=== PATIENT | female | born 1980 | race Caucasian/White ===

== ENCOUNTER 2025-03-11 11:56 | Inpatient (IN) | payer BC, SELFPAY ==
[2025-03-11] VITALS (94 sets, daily range): BP systolic 58–126; BP diastolic 38–87; PULSE 68–126; RESP 16–97; TEMP 36.6–37; O2SAT 83–100
--- NOTE | 2025-03-11 12:13 | ED_ITS ---
Documented by User: BLAIR Canseco 03/11/25 16:52 HPI - Abdominal Pain 2 General: Chief Complaint: Nausea/Vomiting/Diarrhea Stated Complaint: n/v x2 months, knots on her abd, upper abd pain Time Seen by Provider: 03/11/25 12:08 Source: patient and other (significant other) Mode of arrival: wheelchair Limitations: no limitations History of Present Illness: Patient is a 44-year-old female with no known past medical history here along with her significant other for multiple complaints. Significant other states over the past 2 months or so patient has not been doing well reporting that she essentially sleeps all day and is not eating or drinking much. Patient states she has had diffuse abdominal pain along with nausea and vomiting over the past 2 months or so. She feels like her stools are hard. She complains of foul-smelling urine. Patient states she has not been running fevers. Patient states she does not receive much medical care and thus has not been seen for her complaints prior to today. She states she does not take any prescription medications. She denies alcohol use but does admit to drug use. She states she smokes opiates and methamphetamines. Patient upon arrival appears disheveled and much older than her stated age. MD elicited complaint: abdominal pain and other (multiple complaints) Pain Consistency: constant Location: Diffuse Radiation: none Migration to: no migration Exacerbating factors: eating Relieving factors: nothing Associated Symptoms: Reports change in stool character, constipation, nausea and vomiting; Denies dysuria Related Data Home Medications ?Medication ?Instructions ?Recorded ?Confirmed No Known Home Medications 03/11/2502/26 Allergies Allergy/AdvReac Type Severity Reaction Status Date / Time ibuprofen Allergy Unknown Verified 03/11/25 12:07 naproxen Allergy Unknown Verified 03/11/25 12:07 Review of Systems 2 Const: Reports: change in appetite, fatigue, malaise and change in sleep pattern Eyes: Denies: change in vision, blurry vision, photophobia, floaters or seeing flashes Card: Denies: chest pain Resp: Denies: dyspnea GI: Reports: abdominal pain, nausea, vomiting, constipation and change in stool character : Reports: other (dark foul smelling urine); Denies: flank pain or dysuria Musc: Denies: neck pain, back pain, extremity pain, extremity swelling or joint swelling Skin/Breast: Denies: rash Neuro: Reports: dizziness; Denies: headache(s), behavioral changes or Slurred speech present Physical Exam 2 Const: COMMON NORMALS: patient oriented x3, no limitations and alert G ENERAL APPEARANCE: cooperative, disheveled and appears older than stated age ORIENTATION/CONSCIOUSNESS: Yes awake, Yes oriented to person, Yes oriented to place and Yes oriented to time HENMT: COMMON NORMALS: normocephalic and atraumatic HEAD & SCALP: normal to inspection, normocephalic and atraumatic FACE & SINUS: normal facial exam TEETH & GINGIVA: Yes caries and Yes poor dentition Neck/C-Spine: COMMON NORMALS: no lymphadenopathy Chest: COMMONS NORMALS: normal inspection of the chest and normal palpation of entire chest wall Resp: COMMON NORMALS: normal respiratory effort and clear to auscultation bilaterally AUSCULTATION: clear to auscultation bilaterally Cardio: COMMON NORMALS: regular rhythm RATE: tachycardic RHYTHM: regular rhythm GI: COMMON NORMALS: Soft to palpation and no masses INSPECTION: Yes normal to inspection AUSCULTATION: Yes normoactive bowel sounds PALPATION: Yes Soft to palpation, Yes Tenderness to palpation present (GI) (complaining of generalized abominal pain), No Guarding due to palpation present (GI) and No Rigid due to palpation RECTAL EXAM: visual inspection normal and heme positive stool : COMMON NORMALS: Yes no CVA tenderness BLADDER/KIDNEY EXAM: Yes no CVA tenderness Back/Pelvis: COMMON NORMALS: no CVA tenderness and thoracic and lumbar spine normal to inspection Extremity: GENERAL: Yes normal exam except as noted Neuro: EDISON COMA SCALE: document GCS findings Eidson coma scale eye opening: Spontaneous Edison coma scale verbal response: Orientated Edison coma scale motor response: Obey commands Hopkins coma scale total score: 15 COMMON NORMALS: patient oriented x3, moves all extremities, no focal motor deficits and no sensory deficits noted SENSORIUM/ORIENTATION: Yes alert, Yes oriented to person, Yes oriented to place and Yes oriented to time Psych: ACTIVITY/MOTOR BEHAVIOR: Yes psychomotor agitation (consistent with known amphetamine abuse) Course 2 Vital Signs: Vital signs: Vital Signs Temperature 97.8 F 03/11/25 15:02 Pulse Rate 122 H 03/11/25 16:02 Respiratory Rate 25 H 03/11/25 16:02 Blood Pressure 103/62 03/11/25 16:02 Pulse Oximetry 96 03/11/25 15:02 Oxygen Delivery Me thod Room Air 03/11/25 11:59 MDM - Abdominal Pain Medical Decision Making Patient is a 44-year-old female with no known past medical history although admittedly does not regularly seek medical attention, here with her significant other/partner for concerns that she has not been feeling good over the past 2 months or so. Her partner states she has been sleeping more during the day, has had a decreased appetite, and has complained of intermittent abdominal pains as well as nausea and vomiting. Patient arrives and appears disheveled and much older than her stated age of 44. She was found to have significant derangements on her blood work (these were repeated and verified by lab) including a hemoglobin of 2.9. Chemistry panel showing hyponatremia at 127, and anion gap of 32.5, bicarb of 14. Creatinine was normal. Elevations to her LFTs including a t. bili of 3.4 and AST/ALT at 151/48. She has a normal alk phos and normal lipase. Significant elevations to her lactate at 12.2. CT scan of her abdomen and pelvis is essentially unremarkable. She was started on an IV sepsis fluid bolus, given broad-spectrum IV antibiotics, and obtained blood cultures. 2 units of blood are ordered/running. Patient was staffed along with Dr. Nina until he left at shift change and then continued to staffed with Dr. Sotelo. Both physicians have evaluated patient and agree with care plan here in the emergency department. I did speak to Dr. Powell who is agreeable to admission. Differentials at this time are broad. She did have a positive hemoccult here- hospitalist aware and will hold off on general surgery consult at this time for EGD/colonoscopy. Differential Diagnosis Likely abdominal pain, constipation, diverticulitis and gastroenteritis Medical Records I reviewed the patient's medical records. Lab Data I reviewed the patient's lab results. 03/11/25 12:52 03/11/25 12:52 Labs/Radiology: Radiology Impressions Abdomen/Pelvis CT 03/11/25 12:24 IMPRESSION: 1. No acute abdominal or pelvic abnormalities. 2. Normal appendix. 3. Prior cholecystectomy. 4. No colitis. 5. No free fluid or adenopathy. Chest X-Ray 03/11/25 12:24 IMPRESSION: No acute findings. Laboratory Results WBC 3.75 10^3/uL (3.29-11.43) 03/11/25 12:52 Corrected WBC Cancelled 03/11/25 12:20 RBC 0.90 10^6/uL (3.85-5.65) L 03/11/25 12:52 Hgb 2.90 g/dL (11.27-16.99) L* 03/11/25 12:52 Hct 8.6 % (36-47) L* 03/11/25 12:52 MCV 95.6 fl (85-98) 03/11/25 12:52 MCH 32.2 pg (27-33) 03/11/25 12:52 MCHC 33.7 g/dL (30-55) 03/11/25 12:52 RDW 26.5 % (12.1-15.1) H 03/11/25 12:52 Plt Count 106 10^3/cmm (157-399) L 03/11/25 12:52 MPV Not Reportable 03/11/25 12:52 Gran % Cancelled 03/11/25 12:20 Neut % (Auto) 71.2 % 03/11/25 12:52 Lymph % (Auto) 24.3 % 03/11/25 12:52 Grant % (Auto) 3.7 % 03/11/25 12:52 Eos % (Auto) 0.0 % 03/11/25 12:52 Baso % (Auto) 0.0 % 03/11/25 12:52 Reticulocyte % (Auto) 3.2 % (0.5-2.0) H 03/11/25 12:52 Neut # (Auto) 2.67 10^3/uL (1.8-7.7) 03/11/25 12:52 Lymph # (Auto) 0.9 10^3/uL (0.8-4.8) 03/11/25 12:52 Grant # (Auto) 0.1 10^3/uL (0.2-0.9) L 03/11/25 12:52 Eos # (Auto) 0.0 10^3/uL (0.0-0.8) 03/11/25 12:52 Baso # (Auto) 0.0 10^3/uL (0.0-0.1) 03/11/25 12:52 Absolute Gran (auto) Cancelled 03/11/25 12:20 Nucleated RBC % (auto) 1.3 % 03/11/25 12:52 Nucleated RBCs # 0.1 /100WBC 03/11/25 12:52 Peripher Smr Path Cons Sent for review 03/11/25 12:52 ESR < 1 mm/hr (0-15) 03/11/25 12:52 Haptoglobin 10.0 mg/L (30-200) L 03/11/25 13:59 PT 55.60 SECONDS (12.1-14.9) H 03/11/25 12:52 INR 5.90 (0.8-1.2) H* 03/11/25 12:52 APTT 37.1 SECONDS (23.9-36.7) H 03/11/25 12:52 Specimen Type Arterial 03/11/25 13:45 Sample Site Radial, left 03/11/25 13:45 ABG pH 7.47 (7.35-7.45) H 03/11/25 13:45 ABG pCO2 19.5 mmHg (35-45) L* 03/11/25 13:45 ABG pO2 126.0 mmHg (80.0-100.0) H 03/11/25 13:45 ABG PO2/FiO2 Ratio 600 03/11/25 13:45 ABG HCO3 14.4 mmol/L (22-26) L 03/11/25 13:45 ABG O2 Saturation > 99.1 03/11/25 13:45 ABG Base Excess -9.2 mmol/L (-2.0-2.0) L 03/11/25 13:45 Gurpreet Test Pos 03/11/25 13:45 A-a O2 Gradient Not Reportable 03/11/25 13:45 Hematocrit 8.5 % (37-47) L 03/11/25 13:45 Hgb O2 Saturation 94.5 % (95-100) L 03/11/25 13:45 Carboxyhemoglobin 1.5 %THgb (0.4-20.1) 03/11/25 13:45 Methemoglobin 4.4 % (0.4-1.5) H 03/11/25 13:45 Total Hemoglobin < 5.0 g/dL (12-16) L 03/11/25 13:45 Sodium 124.0 mmol/L (131-143) L 03/11/25 13:45 Potassium 4.5 mmol/L (3.5-5.0) 03/11/25 13:45 Glucose 101.0 mg/dL (70-115) 03/11/25 13:45 Ionized Calcium 1.1 mmol/L (1.1-1.4) 03/11/25 13:45 O2 Delivery Device Room air 03/11/25 13:45 FiO2 21.0 % 03/11/25 13:45 Flanging Roll Operator ID [place] 03/11/25 13:45 Sodium 127 mmol/L (136-145) L 03/11/25 12:52 Potassium 4.5 mmol/L (3.5-5.1) 03/11/25 12:52 Chloride 85 mmol/L (98-107) L 03/11/25 12:52 Carbon Dioxide 14 mmol/L (22-29) L 03/11/25 12:52 Anion Gap 32.5 (5-19) H 03/11/25 12:52 BUN 24 mg/dL (6-20) H 03/11/25 12:52 Creatinine 0.7 mg/dL (0.5-0.9) 03/11/25 12:52 GFR Calculation 91.8 mL/min (90-130) 03/11/25 12:52 Glucose 102 mg/dL (65-115) 03/11/25 12:52 Calculated Osmolality 268 mOsm/kg (285-295) L 03/11/25 12:52 Lactic Acid 12.2 mmol/L (0.5-2.2) H* 03/11/25 12:52 Lactic Acid (Sepsis) Cancelled 03/11/25 12:52 Calcium 9.0 mg/dL (8.5-10.5) 03/11/25 12:52 Iron 179 ug/dL (37-145) H 03/11/25 13:59 TIBC 186.88313 mcg/dl 03/11/25 13:59 % Saturation 95.0 % (20-50) H 03/11/25 13:59 Unsat Iron Binding < 8 ug/dL (112-347) L 03/11/25 13:59 Total Bilirubin 3.4 mg/dL (0.15-1.2) H 03/11/25 12:52 Direct Bilirubin 1.01 mg/dL (0.00-0.30) H 03/11/25 13:59 GGT 8 U/L (5-36) 03/11/25 13:59 AST 151 U/L (0-32) H 03/11/25 12:52 ALT 48 U/L (0-33) H 03/11/25 12:52 Alkaline Phosphatase 63 U/L (35-105) 03/11/25 12:52 Ammonia 45 umol/L (11-51) 03/11/25 13:59 C-Reactive Protein 37.6 mg/L (0.0-4.9) H 03/11/25 13:59 Total Protein 5.9 g/dL (6.6-8.7) L 03/11/25 12:52 Albumin 3.7 g/dL (3.5-5.2) 03/11/25 12:52 Globulin 2.2 g/dL (1.3-4.6) 03/11/25 12:52 Lipase 44 U/L (13-60) 03/11/25 12:52 Vitamin B12 150 pg/mL (232-1245) L 03/11/25 13:59 Procalcitonin 0.47 ng/mL (0-0.5) 03/11/25 12:52 Procalcitonin Cancelled 03/11/25 12:52 TSH 0.01 uIU/mL (0.27-4.20) L 03/11/25 13:59 HCG, Qual Negative (Negative) 03/11/25 12:20 Urine Color Yellow (Yellow) 03/11/25 14:42 Urine Appearance Clear (CLEAR) 03/11/25 14:42 Urine pH 5.5 (5-7) 03/11/25 14:42 Ur Specific [place] 1.065 (1.005-1.030) H 03/11/25 14:42 Urine Protein Trace (Negative) A 03/11/25 14:42 Urine Glucose (UA) Negative (Normal) 03/11/25 14:42 Urine Ketones Trace (Negative) 03/11/25 14: Urine Blood 1+ (Negative) A 03/11/25 14: Urine Nitrate Negative (Negative) 03/11/25 14:42 Urine Bilirubin Negative (Negative) 03/11/25 14:42 Urine Urobilinogen 1.0 mg/dL (Negative) 03/11/25 14:42 Ur Leukocyte Esterase Negative (Negative) 03/11/25 14:42 Urine RBC 0-2 /hpf (0-2) 03/11/25 14:42 Urine WBC 0-5 /hpf (0-5) 03/11/25 14:42 Ur Squamous Epith Cells 0-5 /hpf (0-5) 03/11/25 14:42 Amorphous Sediment Not Reportable 03/11/25 14:42 Urine Bacteria None seen /hpf (NONE) 03/11/25 14:42 Hyaline Casts 7.42 /lpf 03/11/25 14:42 Salicylates 7.1 mg/dL (3-10) 03/11/25 12:52 Urine Opiates Screen Negative ng/mL (Negative) 03/11/25 14:42 Acetaminophen < 5.0 ug/mL (10-30) L 03/11/25 12:52 Ur Barbiturates Screen Negative ng/mL (Negative) 03/11/25 14:42 Ur Phencyclidine Scrn Negative ng/mL (Negative) 03/11/25 14:42 Ur Amphetamines Screen Positive ng/mL (Negative) H 03/11/25 14:42 U Benzodiazepines Scrn Negative ng/mL (Negative) 03/11/25 14:42 Urine Cocaine Screen Negative ng/mL (Negative) 03/11/25 14:42 U Marijuana (THC) Screen Negative ng/mL (Negative) 03/11/25 14:42 Ethyl Alcohol < 10 mg/dL (0-10) 03/11/25 12:52 Hepatitis A IgM Ab Non-reactive (Nonreactive) 03/11/25 13:59 Hep Bs Antigen Non-reactive (Nonreactive) 03/11/25 13:59 Hep B Core IgM Ab Non-reactive (Nonreactive) 03/11/25 13:59 Hepatitis C Antibody Non-reactive (Nonreactive) 03/11/25 13:59 HIV 1&2 Ab & HIV 1 Ag Non-reactive (Non-Reactiv) 03/11/25 12:52 HIV 1&2 Antibody Non-reactive (Non-Reactiv) 03/11/25 12:52 Blood Type O Positive 03/11/25 12:52 Rho(D) Type Rh positive 03/11/25 12:52 Antibody Screen Negative 03/11/25 12:52 Crossmatch See Detail 03/11/25 12:52 All radiology interpretation(s) finalized by discharge Discharge Plan Discharge Patient Disposition: Admitted As Inpatient Admit Provider: Pablo Palma Clinical Impression: Severe anemia, Elevated INR, Transaminitis, Hyperbilirubinemia, Elevated lactic acid level, Methamphetamine use Condition: Stable Coding Level of Care Code ED Cow Trimmer for Chg Fwd Documented by User: Charis Sotelo MD 03/11/25 15:54 HPI - Abdominal Pain 2 General: Chief Complaint: Nausea/Vomiting/Diarrhea Stated Complaint: n/v x2 months, knots on her abd, upper abd pain Time Seen by Provider: 03/11/25 12:08 Related Data Home Medications ?Medication ?Instructions ?Recorded ?Confirmed No Known Home Medications 03/11/2502/26 Allergies Allergy/AdvReac Type Severity Reaction Status Date / Time ibuprofen Allergy Unknown Verified 03/11/25 12:07 naproxen Allergy Unknown Verified 03/11/25 12:07 Course 2 Vital Signs: Vital signs: Vital Signs Temperature 97.8 F 03/11/25 15:02 Pulse Rate 122 H 03/11/25 16:02 Respiratory Rate 25 H 03/11/25 16:02 Blood Pressure 103/62 03/11/25 16:02 Pulse Oximetry 96 03/11/25 15:02 Oxygen Delivery Me thod Room Air 03/11/25 11:59 MDM - Abdominal Pain Medical Decision Making Patient is a 44-year-old female with no known past medical history although admittedly does not regularly seek medical attention, here with her significant other/partner for concerns that she has not been feeling good over the past 2 months or so. Her partner states she has been sleeping more during the day, has had a decreased appetite, and has complained of intermittent abdominal pains as well as nausea and vomiting. Patient arrives and appears disheveled and much older than her stated age of 44. She was found to have significant derangements on her blood work (these were repeated and verified by lab) including a hemoglobin of 2.9. Chemistry panel showing hyponatremia at 127, and anion gap of 32.5, bicarb of 14. Creatinine was normal. Elevations to her LFTs including a t. bili of 3.4 and AST/ALT at 151/48. She has a normal alk phos and normal lipase. Significant elevations to her lactate at 12.2. CT scan of her abdomen and pelvis is essentially unremarkable. She was started on an IV sepsis fluid bolus, given broad-spectrum IV antibiotics, and obtained blood cultures. 2 units of blood are ordered/running. Patient was staffed along with Dr. Nina until he left at shift change and then continued to staffed with Dr. Sotelo. Both physicians have evaluated patient and agree with care plan here in the emergency department. I did speak to Dr. Powell who is agreeable to admission. Differentials at this time are broad. She did have a positive hemoccult here- hospitalist aware and will hold off on general surgery consult at this time for EGD/colonoscopy. The case was discussed with: the nurse practitioner. Evaluation and management service: I agree with the evaluation and management decisions made in this patient's care. Results interpretation: I agree with the study interpretation in this patient's care, I agree with the documentation of the study interpretation. I have examined the patient personally. She appears slightly agitated but oriented. No increased work of breathing at this time although she is a little bit tachypneic from her agitation. No focal motor deficits. No oxygen requirement Lab Data 03/11/25 12:52 03/11/25 12:52 Labs/Radiology: Radiology Impressions Abdomen/Pelvis CT 03/11/25 12:24 IMPRESSION: 1. No acute abdominal or pelvic abnormalities. 2. Normal appendix. 3. Prior cholecystectomy. 4. No colitis. 5. No free fluid or adenopathy. Chest X-Ray 03/11/25 12:24 IMPRESSION: No acute findings. Laboratory Results WBC 3.75 10^3/uL (3.29-11.43) 03/11/25 12:52 Corrected WBC Cancelled 03/11/25 12:20 RBC 0.90 10^6/uL (3.85-5.65) L 03/11/25 12:52 Hgb 2.90 g/dL (11.27-16.99) L* 03/11/25 12:52 Hct 8.6 % (36-47) L* 03/11/25 12:52 MCV 95.6 fl (85-98) 03/11/25 12:52 MCH 32.2 pg (27-33) 03/11/25 12:52 MCHC 33.7 g/dL (30-55) 03/11/25 12:52 RDW 26.5 % (12.1-15.1) H 03/11/25 12:52 Plt Count 106 10^3/cmm (157-399) L 03/11/25 12:52 MPV Not Reportable 03/11/25 12:52 Gran % Cancelled 03/11/25 12:20 Neut % (Auto) 71.2 % 03/11/25 12:52 Lymph % (Auto) 24.3 % 03/11/25 12:52 Grant % (Auto) 3.7 % 03/11/25 12:52 Eos % (Auto) 0.0 % 03/11/25 12:52 Baso % (Auto) 0.0 % 03/11/25 12:52 Reticulocyte % (Auto) 3.2 % (0.5-2.0) H 03/11/25 12:52 Neut # (Auto) 2.67 10^3/uL (1.8-7.7) 03/11/25 12:52 Lymph # (Auto) 0.9 10^3/uL (0.8-4.8) 03/11/25 12:52 Grant # (Auto) 0.1 10^3/uL (0.2-0.9) L 03/11/25 12:52 Eos # (Auto) 0.0 10^3/uL (0.0-0.8) 03/11/25 12:52 Baso # (Auto) 0.0 10^3/uL (0.0-0.1) 03/11/25 12:52 Absolute Gran (auto) Cancelled 03/11/25 12:20 Nucleated RBC % (auto) 1.3 % 03/11/25 12:52 Nucleated RBCs # 0.1 /100WBC 03/11/25 12:52 Peripher Smr Path Cons Sent for review 03/11/25 12:52 ESR < 1 mm/hr (0-15) 03/11/25 12:52 Haptoglobin 10.0 mg/L (30-200) L 03/11/25 13:59 PT 55.60 SECONDS (12.1-14.9) H 03/11/25 12:52 INR 5.90 (0.8-1.2) H* 03/11/25 12:52 APTT 37.1 SECONDS (23.9-36.7) H 03/11/25 12:52 Specimen Type Arterial 03/11/25 13:45 Sample Site Radial, left 03/11/25 13:45 ABG pH 7.47 (7.35-7.45) H 03/11/25 13:45 ABG pCO2 19.5 mmHg (35-45) L* 03/11/25 13:45 ABG pO2 126.0 mmHg (80.0-100.0) H 03/11/25 13:45 ABG PO2/FiO2 Ratio 600 03/11/25 13:45 ABG HCO3 14.4 mmol/L (22-26) L 03/11/25 13:45 ABG O2 Saturation > 99.1 03/11/25 13:45 ABG Base Excess -9.2 mmol/L (-2.0-2.0) L 03/11/25 13:45 Gurpreet Test Pos 03/11/25 13:45 A-a O2 Gradient Not Reportable 03/11/25 13:45 Hematocrit 8.5 % (37-47) L 03/11/25 13:45 Hgb O2 Saturation 94.5 % (95-100) L 03/11/25 13:45 Carboxyhemoglobin 1.5 %THgb (0.4-20.1) 03/11/25 13:45 Methemoglobin 4.4 % (0.4-1.5) H 03/11/25 13:45 Total Hemoglobin < 5.0 g/dL (12-16) L 03/11/25 13:45 Sodium 124.0 mmol/L (131-143) L 03/11/25 13:45 Potassium 4.5 mmol/L (3.5-5.0) 03/11/25 13:45 Glucose 101.0 mg/dL (70-115) 03/11/25 13:45 Ionized Calcium 1.1 mmol/L (1.1-1.4) 03/11/25 13:45 O2 Delivery Device Room air 03/11/25 13:45 FiO2 21.0 % 03/11/25 13:45 Flanging Roll Operator ID [place] 03/11/25 13:45 Sodium 127 mmol/L (136-145) L 03/11/25 12:52 Potassium 4.5 mmol/L (3.5-5.1) 03/11/25 12:52 Chloride 85 mmol/L (98-107) L 03/11/25 12:52 Carbon Dioxide 14 mmol/L (22-29) L 03/11/25 12:52 Anion Gap 32.5 (5-19) H 03/11/25 12:52 BUN 24 mg/dL (6-20) H 03/11/25 12:52 Creatinine 0.7 mg/dL (0.5-0.9) 03/11/25 12:52 GFR Calculation 91.8 mL/min (90-130) 03/11/25 12:52 Glucose 102 mg/dL (65-115) 03/11/25 12:52 Calculated Osmolality 268 mOsm/kg (285-295) L 03/11/25 12:52 Lactic Acid 12.2 mmol/L (0.5-2.2) H* 03/11/25 12:52 Lactic Acid (Sepsis) Cancelled 03/11/25 12:52 Calcium 9.0 mg/dL (8.5-10.5) 03/11/25 12:52 Iron 179 ug/dL (37-145) H 03/11/25 13:59 TIBC 186.83328 mcg/dl 03/11/25 13:59 % Saturation 95.0 % (20-50) H 03/11/25 13:59 Unsat Iron Binding < 8 ug/dL (112-347) L 03/11/25 13:59 Total Bilirubin 3.4 mg/dL (0.15-1.2) H 03/11/25 12:52 Direct Bilirubin 1.01 mg/dL (0.00-0.30) H 03/11/25 13:59 GGT 8 U/L (5-36) 03/11/25 13:59 AST 151 U/L (0-32) H 03/11/25 12:52 ALT 48 U/L (0-33) H 03/11/25 12:52 Alkaline Phosphatase 63 U/L (35-105) 03/11/25 12:52 Ammonia 45 umol/L (11-51) 03/11/25 13:59 C-Reactive Protein 37.6 mg/L (0.0-4.9) H 03/11/25 13:59 Total Protein 5.9 g/dL (6.6-8.7) L 03/11/25 12:52 Albumin 3.7 g/dL (3.5-5.2) 03/11/25 12:52 Globulin 2.2 g/dL (1.3-4.6) 03/11/25 12:52 Lipase 44 U/L (13-60) 03/11/25 12:52 Vitamin B12 150 pg/mL (232-1245) L 03/11/25 13:59 Procalcitonin 0.47 ng/mL (0-0.5) 03/11/25 12:52 Procalcitonin Cancelled 03/11/25 12:52 TSH 0.01 uIU/mL (0.27-4.20) L 03/11/25 13:59 HCG, Qual Negative (Negative) 03/11/25 12:20 Urine Color Yellow (Yellow) 03/11/25 14:42 Urine Appearance Clear (CLEAR) 03/11/25 14:42 Urine pH 5.5 (5-7) 03/11/25 14:42 Ur Specific [place] 1.065 (1.005-1.030) H 03/11/25 14:42 Urine Protein Trace (Negative) A 03/11/25 14:42 Urine Glucose (UA) Negative (Normal) 03/11/25 14: Urine Ketones Trace (Negative) 03/11/25 14: Urine Blood 1+ (Negative) A 03/11/25 14: Urine Nitrate Negative (Negative) 03/11/25 14:42 Urine Bilirubin Negative (Negative) 03/11/25 14: Urine Urobilinogen 1.0 mg/dL (Negative) 03/11/25 14:42 Ur Leukocyte Esterase Negative (Negative) 03/11/25 14:42 Urine RBC 0-2 /hpf (0-2) 03/11/25 14:42 Urine WBC 0-5 /hpf (0-5) 03/11/25 14:42 Ur Squamous Epith Cells 0-5 /hpf (0-5) 03/11/25 14:42 Amorphous Sediment Not Reportable 03/11/25 14:42 Urine Bacteria None seen /hpf (NONE) 03/11/25 14:42 Hyaline Casts 7.42 /lpf 03/11/25 14:42 Salicylates 7.1 mg/dL (3-10) 03/11/25 12:52 Urine Opiates Screen Negative ng/mL (Negative) 03/11/25 14:42 Acetaminophen < 5.0 ug/mL (10-30) L 03/11/25 12:52 Ur Barbiturates Screen Negative ng/mL (Negative) 03/11/25 14:42 Ur Phencyclidine Scrn Negative ng/mL (Negative) 03/11/25 14:42 Ur Amphetamines Screen Positive ng/mL (Negative) H 03/11/25 14:42 U Benzodiazepines Scrn Negative ng/mL (Negative) 03/11/25 14:42 Urine Cocaine Screen Negative ng/mL (Negative) 03/11/25 14:42 U Marijuana (THC) Screen Negative ng/mL (Negative) 03/11/25 14:42 Ethyl Alcohol < 10 mg/dL (0-10) 03/11/25 12:52 Hepatitis A IgM Ab Non-reactive (Nonreactive) 03/11/25 13:59 Hep Bs Antigen Non-reactive (Nonreactive) 03/11/25 13:59 Hep B Core IgM Ab Non-reactive (Nonreactive) 03/11/25 13:59 Hepatitis C Antibody Non-reactive (Nonreactive) 03/11/25 13:59 HIV 1&2 Ab & HIV 1 Ag Non-reactive (Non-Reactiv) 03/11/25 12:52 HIV 1&2 Antibody Non-reactive (Non-Reactiv) 03/11/25 12:52 Blood Type O Positive 03/11/25 12:52 Rho(D) Type Rh positive 03/11/25 12:52 Antibody Screen Negative 03/11/25 12:52 Crossmatch See Detail 03/11/25 12:52 Discharge Plan Discharge Patient Disposition: Admitted As Inpatient Admit Provider: Pablo Palma Clinical Impression: Severe anemia, Elevated INR, Transaminitis, Hyperbilirubinemia, Elevated lactic acid level, Methamphetamine use Condition: Stable Coding Level of Care Code ED Cow Trimmer for Narda Rangel
--- NOTE | 2025-03-11 12:24 | CT_ITS ---
WS: [id number] CT ABDOMEN AND PELVIS WITH CONTRAST HISTORY: abdominal pain TECHNIQUE: Imaging performed of the abdomen and pelvis with IV contrast. Single phase imaging of the abdomen. Coronal and sagittal reformats are submitted. All CT scans at [facility] use at least one of these dose optimization techniques: automated exposure control; mA and/or kV adjustment per patient size (includes targeted exams where dose is matched to clinical indication); or iterative reconstruction. IV CONTRAST: Omnipaque 350; 100 mL IV. Oral contrast: No DLP: 921.73 mGy.cm COMPARISON: 01/08/2009 Lower thorax: Lung bases are clear. Heart is normal size. Small hiatal hernia. Liver/biliary system: Normal size liver. Focal fatty sparing along the falciform ligament. There is also very small, 5 mm cyst adjacent to the falciform ligament. No intrahepatic duct dilatation. Gallbladder: Prior cholecystectomy. Pancreas: Normal size pancreas and pancreatic duct. No adjacent inflammation. Spleen: Normal size spleen. No mass or infarct. Adrenal glands: Normal. Right kidney: Normal size kidney with no obstruction. Cortical cyst upper pole 7 mm. No perinephric stranding. RIGHT ureter is normal size. Left kidney: Normal. Aorta: Normal. Lymphadenopathy: None. Free fluid: None. GI tract: Normal appendix. No GI tract obstruction or ischemia. Abdominal wall: Unremarkable abdominal wall. No hernia. Pelvis: No free fluid or adenopathy within the pelvis. Bones: Unremarkable. CT/CT abdomen pelvis w con* [id number] IMPRESSION: 1. No acute abdominal or pelvic abnormalities. 2. Normal appendix. 3. Prior cholecystectomy. 4. No colitis. 5. No free fluid or adenopathy.
--- NOTE | 2025-03-11 12:24 | XRR_ITS ---
PROCEDURE INFORMATION: Exam: XR Chest Exam date and time: 03/11/2025 12:28 PM Age: 44 years old Clinical indication: Shortness of breath; Generalized weakness and SOB; Additional info: Feeling poor TECHNIQUE: Imaging protocol: Radiologic exam of the chest. Views: 1 view. COMPARISON: No relevant prior studies available. FINDINGS: Lungs: Unremarkable. No consolidation. Pleural spaces: Unremarkable. No pleural effusion. No pneumothorax. Heart/Mediastinum: Unremarkable. No cardiomegaly. Bones/joints: Unremarkable. XR/XR chest 1V portable [id number] IMPRESSION: No acute findings.
--- OUTSIDE RECORDS SUMMARY | 2025-03-11 12:36 | XMS_ITS | Clinical Summary ---
Author Organization [facility] Address [address] [facility] Attn: Epic Prelude ADT ANUJ OSPINA [address] Care Team Providers Care Tire Center Supervisor Name Role Phone Collins, Shelby UX RESEARCHER Primary Care Provider [phone] Allergies Active Allergy Reactions Criticality Noted Date Comments Cyclobenzaprine Itching Medium 05/06/2010 Throat Ibuprofen Nausea and Vomiting Low 07/24/2009 Ketorolac Nausea and Vomiting Low 03/12/2012 Naproxen Anaphylaxis High 08/26/2008 Medications HYDROcodone-tressa taminophen (NORCO) 5-325 mg tablet Take 1 Tablet by mouth every 6 hours as needed for Pain, Moderate. Max Daily Amount: 4 Tablet 4 Tablet 0 7 Active diphenhydrAMINE (BENADRYL) 50 mg capsule Take 1 Capsule (50 mg) by mouth every 6 hours as needed for Allergies. 14 Capsule None 9 Active traMADoL (ULTRAM) 50 mg tabletIndicatio ns:Infected insect bite or sting Take 1 Tablet (50 mg) by mouth every 6 hours as needed for Pain. 14 Tablet 0 9 Active benzonatate (TESSALON) 100 mg capsule Take 100 mg by mouth 3 times daily. 7 Active cetirizine (ZyrTEC) 10 mg tablet Take 10 mg by mouth daily. 7 Active fluticasone propionate (FLONASE) 50 mcg/spray [place], Suspension nasal inhaler Administer 2 Sprays in each nostril daily. 6 Active Active Problems Problem Noted Date Diagnosed Date Cigarette dependence 01/16/2016 Gingivitis 06/23/2010 Dental caries 06/23/2010 Back pain, chronic 05/06/2010 Spasm of muscle 05/06/2010 Depression with anxiety 04/28/2010 DUB (dysfunctional uterine bleeding) 10/03/2008 Pelvic pain in female 10/03/2008 Immunizations Immunization Administration Dates Next Due (ADACEL/BOOSTRIX)(10 YR UP) TDAP VACCINE, 0.5ML, IM 05/19/2015,02/02/2013 Family History Medical History Relation Name Comments Diabetes Maternal Grandfather Heart Disease Maternal Grandfather Diabetes Maternal Grandmother Arthritis-osteo Mother Janeth Alberts Asthma Mother Janeth Alberts Hypertension Mother Janeth Alberts Relation Name Status Comments Father Alive Maternal Grandfather Maternal Grandmother Mother Janeth Alberts Alive Social History Tobacco Use Types Packs/Day Years Used Date Smoking Tobacco: Every Day Cigarettes Smokeless Tobacco: Never Alcohol Use Standard Drinks/Week Comments No 0 (1 standard drink = 0.6 oz pur e alcohol) Comments Unknown Sex and Gender Information Value Date Recorded Sex Assigned at Not on file 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 Gender Identity Not on file Sexual Orientation Not on file Last Filed Vital Signs Vital Sign Reading Time Taken Comments Blood Pressure 120/60 10/10/2018 11:45 PM CDT Pulse 72 10/10/2018 11:45 PM CDT Temperature 36.6 C (97.9 F) 10/10/2018 10:46 PM CDT Respiratory Rate 18 10/10/2018 11:45 PM CDT Oxygen Saturation - - Inhaled Oxygen Concentration - - Weight 117.5 kg (259 lb) 10/10/2018 10:46 PM CDT Height 165.1 cm (5' 5 ) 10/10/2018 10:46 PM CDT Body Mass Index 43.1 10/10/2018 10:46 PM CDT Plan of Treatment Health Maintenance Due Date Last Done Comments HEPATITIS B VACCINES (1 of 3 - 19+ 3-dose series) 2001 HPV/Cotest (21-29) 2003 HPV VACCINES (1 - 3-dose SCDM series) 2009 CERVICAL CANCER SCREENING 2012 HPV/Cotest (30-65) 2012 PAP SMEAR 2012 BREAST CANCER SCREENING 2022 INFLUENZA VACCINE (#1) 2024 DTAP/TDAP/TD VACCINES (3 - Td or Tdap) 05/19/2025, 02/02/2013 Care Teams Tire Center Supervisor Relationship Specialty Start Date End Date Collins, Shelby VERONIKA [address] [place] [address] PCP - General Nurse Practitioner Family 10/10/18
--- OUTSIDE RECORDS SUMMARY | 2025-03-11 12:36 | XMS_ITS | Clinical Summary ---
Author Organization [facility] Address [address] [place] [address] Care Team Providers Care Teacher Dramatics Name Role Phone Collins, Shelby VERONIKA Primary Care Provider Allergies Active Allergy Reactions Criticality Noted Date Comments Cyclobenzaprine Itching Medium 05/06/2010 Throat Ibuprofen Nausea and Vomiting Low 07/24/2009 Ketorolac Nausea and Vomiting Low 03/12/2012 Naproxen Anaphylaxis High 08/26/2008 Medications TYLENOL EXTRA STRENGTH 500 mg Oral Tab Take 500 mg by mouth every 6 hours as needed for Pain. Active fluticasone (FLONASE) 50 mcg/spray Supply, Suspension Administer 2 Sprays in each nostril daily. Active benzonatate (TESSALON) 100 mg capsule Take 100 mg by mouth 3 times daily. Active cetirizine (ZyrTEC) 10 mg tablet Take 10 mg by mouth daily. Active HYDROcodone-tressa taminophen (NORCO) 5-325 mg tablet Take 1 Tablet by mouth every 6 hours as needed for Pain, Moderate. Max Daily Amount: 4 Tablet 4 Tablet 7 Active diphenhydrAMINE (BENADRYL) 50 mg capsule Take 1 Capsule (50 mg) by mouth every 6 hours as needed for Allergies. 14 Capsule None 9 Active traMADol (ULTRAM) 50 mg tabletIndicatio ns:Infected insect bite or sting Take 1 Tablet (50 mg) by mouth every 6 hours as needed for Pain. 14 Tablet 9 Active Active Problems Problem Noted Date Diagnosed Date Cigarette dependence 01/16/2016 Dental caries 06/23/2010 Gingivitis 06/23/2010 Back pain, chronic 05/06/2010 Spasm of muscle 05/06/2010 Depression with anxiety 04/28/2010 Pelvic pain in female 10/03/2008 DUB (dysfunctional uterine bleeding) 10/03/2008 Immunizations Immunization Administration Dates Next Due [...] Used Date Smoking Tobacco: Every Day Cigarettes 0.5 10 Smokeless Tobacco: Never Tobacco Cessation:Ready to Q uit: No; Counseling Given: Yes Alcohol Use Standard Drinks/Week Comments No 0 (1 standard drink = 0.6 oz pur e alcohol) Comments No Sex and Gender Information Value Date Recorded Sex Assigned at Not on file 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 Gender Identity Not on file Sexual Orientation Not on file Occupation Industry Job Start Date Job End Date Not on file Not on file Not on file Not on file Last Filed Vital Signs Vital Sign Reading Time Taken Comments Blood Pressure 120/60 10/10/2018 11:45 PM CDT Pulse 72 10/10/2018 11:45 PM CDT Temperature 36.6 C (97.9 F) 10/10/2018 10:46 PM CDT Respiratory Rate 18 10/10/2018 11:45 PM CDT Oxygen Saturation 95% 10/10/2018 11:45 PM CDT Inhaled Oxygen Concentration - - Weight 117.5 [...] 2012 HPV/Cotest (30-65) 2012 PAP SMEAR 2012 08/26/2008 BREAST CANCER SCREENING 2022 INFLUENZA VACCINE (#1) 2024 DTAP/TDAP/TD VACCINES (3 - Td or Tdap) 05/19/2025, 02/02/2013 Procedures Procedure Name Priority Date/Time Associated Diagnosis Comments CERV/VAG CYTOPATH, THIN PREP CELL TECHNICIAN Routine 08/26/2008 12:22 PM CDT from Last 3 Months or Most Recently Relevant to Health Maintenance Results * CERV/VAG CYTOPATH, THIN PREP CELL TECHNICIAN (08/26/2008 12:22 PM CDT) PATHOLOGY/CY TOLOGY REPORT [facility] Anatomic Pathology Dept [facility] [address] Patient: JAMIE ALBERTS Accn No: [id number] , [id number] Collected: 08/26/2008 12:22:00 PM CYTOLOGY COMMUNICATIONS EQUIPMENT OPERATOR FINAL REPORT - - CELL TECHNICIAN PAP History Specimen Source: Endocervical LMP: 08-05-08 Last Pap Date: None Provided Specimen Adequacy Satisfactory for interpretation. The smear lacks endocervical or metaplastic cells. Diagnosis NEGATIVE FOR INTRAEPITHELIAL LESION OR MALIGNANCY. Fungal organisms morphologically consistent with Starla. Mobile Lounge Driver Or Operator 09/08/08 Completed by: CAROLYN THORNE (Electronically signed by) 09/08/08 Comment Repeat Pap smear within 6-12 months. Important Info About Pap Smears HPV Testing off the Thin Prep vial can be done as a means of further evaluating a Thin Prep Report. For information about ordering the HPV test, phone Cytology at . Treatment or follow-up recommendations (if any) that are considered within this report are based upon general recommendations as contained in 2001 Consensus Guidelines For Cervical Cytological Abnormalities MICHAEL: September 19, 2001, and are provided as a general guideline rather than as a specific recommendation. Final decisions about the most appropriate treatment and follow-up should be made on an individualized basis by the treating physician in consultation with his/her patient. [facility] 08/26/2008 12:2 2 PM CDT us Feliz Nguyễn INSPECTOR POISING PATHOLOGY/CYTOLOGY ORDERABLES Edited INTERFACE SYSTEM Refer to clinic/hospital department [facility] CLIA# [id number] [address] [place] [place] [address] from Last 3 Months or Most Recently Relevant to Health Maintenance Insurance [address] [place] [address] MEDICAID [place] Care Teams Teacher Dramatics Relationship Specialty Start Date End Date Shelby Collins FNP [address] [place] [address] PCP - General Nurse Practitioner Family 10/10/18
[2025-03-11 12:48] LABS: HCG, Serum Qual Negative (Negative)
[2025-03-11 13:02] LABS: Mean Corpuscular HGB Conc 33.7 g/dL (30-55); Mean Corpuscular Hemoglobin 32.2 pg (27-33); Mean Corpuscular Volume 95.6 fl (85-98); Nucleated Red Blood Cells % 1.3 %; Platelet Count 106 10^3/cmm (157-399); Red Blood Count 0.90 10^6/uL (3.85-5.65); White Blood Count 3.75 10^3/uL (3.29-11.43)
[2025-03-11 13:10] LABS: Hematocrit 8.6 % (36-47); Hemoglobin 2.90 g/dL (11.27-16.99)
[2025-03-11 13:19] LABS: Alanine Aminotransferase 48 U/L (0-33); Albumin Level 3.7 g/dL (3.5-5.2); Alkaline Phosphatase 63 U/L (35-105); Anion Gap 32.5 (5-19); Aspartate Amino Transferase 151 U/L (0-32); Blood Urea Nitrogen 24 mg/dL (6-20); Calcium 9.0 mg/dL (8.5-10.5); Carbon Dioxide 14 mmol/L (22-29); Chloride 85 mmol/L (98-107); Globulin 2.2 g/dL (1.3-4.6); Glucose 102 mg/dL (65-115); Lipase 44 U/L (13-60); Osmolality Calculated 268 mOsm/kg (285-295); Potassium 4.5 mmol/L (3.5-5.1); Slide Review Slide Review Perform; Sodium 127 mmol/L (136-145); Total Protein 5.9 g/dL (6.6-8.7)
[2025-03-11 13:24] LABS: Lactic Sepsis W/Reflex 12.2 mmol/L (0.5-2.2)
[2025-03-11] MEDS: iohexol 350 mg/mL 500 mL Btl (per mL) IV (13:43)
[2025-03-11 13:44] LABS: Partial Thromboplastin Time 37.1 SECONDS (23.9-36.7); Prothrombin Time 55.60 SECONDS (12.1-14.9)
[2025-03-11 13:52] LABS: Acetaminophen < 5.0 ug/mL (10-30); Alcohol Level < 10 mg/dL (0-10); Salicylate 7.1 mg/dL (3-10)
[2025-03-11 13:59] LABS: Procalcitonin 0.47 ng/mL (0-0.5)
[2025-03-11] MEDS: piperacillin-tazobactam 3.375 GM in sodium chloride 0.9% (plus) 50 ML IV (14:01)
[2025-03-11 14:02] LABS: ABG PH Result 7.47 (7.35-7.45); Arterial Blood Gas Hematocrit 8.5 % (37-47); Blood Gas Allen Test Pos; Blood Gas Operator Identificat WALCI; Blood Gas Sample Site Radial, left; Blood Gas Sample Type Arterial; Carboxyhemoglobin 1.5 %THgb (0.4-20.1); Glucose Level-ABG 101.0 mg/dL (70-115); HCO3 ABG 14.4 mmol/L (22-26); Ionized Calcium Level - ABG 1.1 mmol/L (1.1-1.4); Methemoglobin 4.4 % (0.4-1.5); Oxygen Saturation ABG > 99.1; PO2 ABG 126.0 mmHg (80.0-100.0); PO2 FiO2 Ratio Arterial Blood 600; Potassium Level - ABG 4.5 mmol/L (3.5-5.0); Sodium Level - ABG 124.0 mmol/L (131-143)
[2025-03-11 14:03] LABS: ABG PCO2 19.5 mmHg (35-45)
[2025-03-11 14:10] LABS: INR 5.90 (0.8-1.2)
[2025-03-11 14:20] LABS: Hepatitis A Antibody IgM Non-Reactive (Nonreactive); Hepatitis B Surface Antigen Non-Reactive (Nonreactive)
[2025-03-11 14:42] LABS: Ammonia 45 umol/L (11-51)
[2025-03-11 14:51] LABS: Glucose Urine UA Negative (Normal); Nitrate Urine Negative (Negative)
[2025-03-11 14:53] LABS: Reflex Lactate Order REFLEX LACTIC ORDERD
[2025-03-11 14:56] LABS: Add Urine Microscopic? YES
[2025-03-11 14:57] LABS: PCP Screen Urine Negative (Negative)
[2025-03-11 15:00] LABS: Specific Gravity, Urine 1.065 (1.005-1.030)
--- NOTE | 2025-03-11 15:25 | USR_ITS ---
PROCEDURE INFORMATION: Exam: US Duplex Lower Extremity Veins, Bilateral Exam date and time: 03/11/2025 4:22 PM Age: 44 years old Clinical indication: Pain; Leg, lower; Bilateral; Additional info: Dvt TECHNIQUE: Imaging protocol: Real-time duplex ultrasound of the bilateral extremities with 2-D tinajero scale, color Doppler flow and spectral waveform analysis including responses to compression and other maneuvers (when performed) with image documentation. Complete exam focused on the lower extremity veins. COMPARISON: CT abdomen pelvis w con* [id number] 03/11/2025 1:38 PM FINDINGS: Right deep veins: Unremarkable. The common femoral, femoral, proximal profunda femoral and popliteal veins are patent without thrombus. Normal Doppler waveforms. Normal compressibility and/or augmentation response. Left deep veins: Unremarkable. The common femoral, femoral, proximal profunda femoral and popliteal veins are patent without thrombus. Normal Doppler waveforms. Normal compressibility and/or augmentation response. Superficial veins: Greater saphenous veins at the saphenofemoral junctions are patent bilaterally without thrombus. Soft tissues: Unremarkable. US/CV venous duplex [facility] [id number] IMPRESSION: No evidence of deep vein thrombosis.
--- NOTE | 2025-03-11 15:26 | PM.HP ---
Providers/Chief Complaint Chief Complaint: n/v x2 months, knots on her abd, upper abd pain History of Present Illness Radha Alberts is a 44 year old female with no known past medical history, who has not followed up with a physician for many years was brought into the ER today by her friends because she has been extremely sleepy, with weakness and low energy worsening for the last 2 months. Patient is awake and alert, weak and tired appearing. States she has been constipated for last 3 to 4 days with nausea and vomiting. Denies any hematemesis or black tarry bowel movements. Denies any alcohol use. States she does smoke methamphetamines with last use within the last 2 weeks. States she was told she was anemic many years ago. In the ER she was found to have a hemoglobin of 2.9, INR of 5.9 and is in the process of getting first unit of blood. On examination blood pressure is 103 over 56 mmHg with heart rate of 118 bpm. Review of Systems General: Reports: 10 or more systems reviewed and unremarkable except in HPI and below Const: Denies: fever(s), chills, body aches, change in appetite, change in weight, malaise, night sweats, diaphoresis, change in sleep pattern, daytime sleepiness or snoring Eyes: Denies: change in vision, blurry vision, photophobia, eye discomfort or eye discharge ENMT: Denies: throat pain, enlarged tonsils, hoarseness, mouth pain, oral sores, dry mouth, tinnitus, nasal congestion or post nasal drip Card: Denies: chest pain, palpitations, irregular heart rhythm, edema, swelling of feet/ankles, lightheadedness, syncope, pre-syncope, dyspnea on exertion, orthopnea, leg pain with exertion or acrocyanosis Resp: Denies: dyspnea, productive cough, non-productive cough, wheezing, stridor, pain on inspiration, change in phlegm color, hemoptysis or chest congestion GI: Denies: abdominal pain, nausea, vomiting, hematemesis, coffee ground emesis, dysphagia, heartburn, diarrhea, constipation, bloating, GI cramping, change in bowel habits, pain on defecation, hematochezia or melena : Denies: flank pain, dysuria, urinary frequency, urinary urgency, urinary hesitancy, nocturia or hematuria Musc: Denies: neck pain, back pain, extremity pain, joint pain, joint swelling, joint redness, joint stiffness or limited range of motion Neuro: Denies: headache(s), numbness in extremities, weakness in extremities, sensory changes, lack of coordination, difficulty walking, frequent falls, dizziness, vertigo, confusion, Slurred speech present, difficulty communicating thoughts or seizure-like activity Psych: Denies: anxiety, depression, mood swings, panic attacks, hopelessness or irritability Endo: Denies: polyuria, polydipsia, tired all the time, cold intolerance, excessive sweating, flushing or heat intolerance Brooks/Lymph: Denies: easy bruising or easy bleeding All/Imm: Denies: tongue swelling, facial swelling or acute wheezing Medications/Allergies Home Medications ?Medication ?Instructions ?Recorded ?Confirmed ?Last Taken ?Type No Known Home Medications 03/11/25 03/11/25 Unknown History Allergies Allergy/AdvReac Type Severity Reaction Status Date / Time ibuprofen Allergy Unknown Verified 03/11/25 12:07 naproxen Allergy Unknown Verified 03/11/25 12:07 Vitals/I&O/Wt Last Vital Signs Temp 97.8 F 03/11/25 15:02 Pulse 125 H 03/11/25 15:02 Resp 36 H 03/11/25 15:02 BP 103/56 03/11/25 15:02 Pulse Ox 96 03/11/25 15:02 O2 Del Method Room Air 03/11/25 11:59 03/11/25 03/11/25 03/11/25 06:59 14:59 22:59 Intake Total 50 / 50 Balance 50 / 50 Physical Exam Narrative: General: No acute distress, AO x3, tired appearing, weak appearing, older than stated age HEENT: PERRLA, pupils bilaterally equal and reactive Chest: Normal vesicular breath sounds, no added sounds, equal good air entry bilaterally CVS: S1-S2 regular, ejection systolic murmur at the apex, tachycardia, no gallops, no rubs Abdomen: Soft, nontender, no organomegaly, bowel sounds present Neuro: No focal deficits, no facial deformity, AO x3, power 5/5 in all limbs Data 03/11/25 12:52 03/11/25 12:52 Micro: Microbiology 03/11/25 14:13 Blood Culture - Preliminary Blood SPECIMEN COLLECTED 03/11/25 13:59 Blood Culture - Preliminary Blood SPECIMEN COLLECTED A&P Assessment and plan 1. Anemia: 2. Thrombocytopenia: 3. Supratherapeutic INR: 4. Hyponatremia: Most likely in setting of dehydration. NS at 75 cc/h. Check urine lites. Monitor BMP daily. 5. Elevated lactic acid level: 6. Transaminitis: 7. Amphetamine abuse: Plan: Anemia: With signs of endorgan damage and early shock with tachycardia. Maintain mean artery pressure 65. Target hemoglobin over 7. Currently 2.9. Normal MCV, normal MCHC. Associated with thrombocytopenia. CT abdomen/pelvis with normal spleen. Check iron panel, reticulocyte count, vitamin B12 level, folate level, LDH, haptoglobin level, peripheral smear. Check HIV. Hepatitis panel negative. Check EBV and CMV serology. Check respiratory viral panel. Get 2 units of PRBC. Will plan for slow gradual transfusion as currently patient is maintaining mean arterial pressure over 65 and is at a risk of nonischemic cardiomyopathy. Check echocardiogram. Repeat hemoglobin after second unit. Most likely will transfuse further early tomorrow morning. Patient would eventually need further workup with hematology team and possible bone marrow biopsy. Patient and family are aware that we do not have capabilities of doing bone marrow biopsy or in patient burn center nurse and for that once she is stabilized she will need to follow-up as an outpatient and she is agreeable. Protonix 40 mg twice daily. Carafate ACHS. Clear liquid diet for now. Supratherapeutic INR/transaminitis/hyperbilirubinemia: Most likely in setting of endorgan damage due to severe anemia. Vitamin K 5 mg one-time. Repeat INR in AM. Hepatitis panel negative. Monitor liver functions daily. Check direct bilirubin. Repeat lactic acid in AM. Full code Clear liquid diet Protonix for PUD prophylaxis SCD for DVT prophylaxis. Not on medical prophylaxis given severe anemia PDMP PDMP Reviewed: Not Reviewed Attestations Medical Necessity Statement*: Admission for more than 2 midnights for management of severe anemia with endorgan damage with transaminitis, hyperbilirubinemia, early shock Critical Care Time: The high probability of a clinically significant, sudden or life threatening deterioration of the patient's [hematology] system(s) required my full and direct attention, intervention and personal management. The critical care time is as shown. This time is in addition to time spent performing any reported procedures but includes the following: [x] Data and vital sign review and interpretation [x] Patient assessment, examination and intervention [x] Documentation [x] Medication orders and management Critical Care Time (min): 65 Coding Level of Care Code Critical Care >/= 30 minutes Critical care time (in minutes): 65 The high probability of a clinically significant, sudden or life threatening deterioration, as referenced in this documentation, required my full and direct attention, intervention and personal management. The critical care time shown is in addition to time spent performing any reported separately billable procedures and includes the following: [x] Data and vital sign review and interpretation [x] Patient assessment, examination and intervention [x] Medication orders and management [x] Patient/Family updates as able [x] Care Coordination and Documentation. Diagnoses Anemia D64.9 Thrombocytopenia D69.6 Supratherapeutic INR R79.1 Hyponatremia E87.1 Elevated lactic acid level R79.89 Transaminitis R74.01 Amphetamine abuse F15.10
[2025-03-11 15:40] LABS: LAB Peripheral Smear Sent for Review
[2025-03-11 15:56] LABS: Iron 179 ug/dL (37-145)
[2025-03-11 16:11] LABS: Vitamin B12 150 pg/mL (232-1245)
[2025-03-11 16:14] LABS: HIV 1 & 2 Antigen Non-Reactive (Non-Reactiv)
[2025-03-11 16:19] LABS: Thyroid Stimulating Hormone 0.01 uIU/mL (0.27-4.20)
[2025-03-11 16:42] LABS: Total Iron Binding Capacity 186.99999 mcg/dl; Unsaturated Iron Binding < 8 ug/dL (112-347)
[2025-03-11 16:50] LABS: Total Cells Counted 100 (0-100)
[2025-03-11 16:51] LABS: Atypical Lymphs 1.0 % (0-5)
[2025-03-11 16:52] LABS: Anisocytosis 3+; Poikilocytosis 2+; Polychromasia 1+
[2025-03-11 16:53] LABS: Ovalocytes 1+; Tear Drop Cells 1+
[2025-03-11 16:54] LABS: Hypersegmented Polys 2+; Hypochromasia 1+
[2025-03-11] MEDS: phytonadione (ADULT) 10 mg/mL Ampule 1 mL 5 MG SUBCUT (16:55)
[2025-03-11] MEDS: pantoprazole 40 mg SDV IVP (16:55)
[2025-03-11] MEDS: sucralfate 1 gm/10 mL Oral Liq UDC PO ×3 (16:56→20:42)
[2025-03-11 16:57] LABS: Macrocytosis 2+
[2025-03-11] MEDS: cyanocobalamin 1,000 mcg/mL SDV 1000 MCG IM (17:57)
--- NOTE | 2025-03-11 18:39 | ECG_ITS ---
[facility] Test Date: 2025-03-11 Pat Name: Radha Alberts Department: Room: [facility] Gender: Female Rheumatologist: : 1980 Requested By: Saima Barbosa Order Number: [id number] Yassine MD: Veronica Lloyd M.D. Measurements Intervals [place] Rate: 126 P: 45 TN: 127 QRS: 54 QRSD: 91 T: 87 QT: 335 QTc: 487 Interpretive Statements SINUS TACHYCARDIA NONSPECIFIC ST & T-WAVE ABNORMALITY ABNORMAL RHYTHM ECG No previous ECG available for comparison Electronically Signed On 03-19-2025 23:05:22 CDT by Veronica Lloyd M.D. [id number]
[2025-03-11] MEDS: ondansetron 2 mg/ML SDV 2 mL 4 MG IVP (20:10)
[2025-03-11 20:12] LABS: Coronavirus 229E,HKU1,NL63,OC4 Not Detected (NOT DETECT); Parainfluenza Virus Type 1 Not Detected (NOT DETECT); Parainfluenza Virus Type 2 Not Detected (NOT DETECT); Parainfluenza Virus Type 3 Not Detected (NOT DETECT); Parainfluenza Virus Type 4 Not Detected (NOT DETECT); SARS-COV-2 Not Detected (NOT DETECT)
[2025-03-11 20:18] LABS: Free T4 Free Thyroxine 3.47 ng/dL (0.82-1.77)
[2025-03-11 20:45] LABS: Ferritin 1561 ng/mL (15-150)
[2025-03-11 21:36] LABS: Estmated Average Glucose 114; Hemoglobin A1C 5.6 % (4.0-6.0)
[2025-03-11 21:37] LABS: Reflex FDPQ test REFLEX FDP QUEST TES
[2025-03-11 21:44] LABS: Hemoglobin 5.60 g/dL (11.27-16.99)
[2025-03-11 21:45] LABS: Hematocrit 16.0 % (36-47)
[2025-03-11 21:57] LABS: INR 2.72 (0.8-1.2); Partial Thromboplastin Time 37.7 SECONDS (23.9-36.7); Prothrombin Time 30.40 SECONDS (12.1-14.9)
[2025-03-11 21:58] LABS: Fibrinogen 210 mg/dL (174-498)
[2025-03-11 22:01] LABS: Lactic Sepsis W/Reflex 1.9 mmol/L (0.5-2.2)
[2025-03-12] VITALS (116 sets, daily range): BP systolic 84–139; BP diastolic 46–93; PULSE 98–115; RESP 14–35; TEMP 36.1–37; O2SAT 94–100
[2025-03-12 05:34] LABS: Hemoglobin 6.70 g/dL (11.27-16.99); Mean Corpuscular HGB Conc 36.6 g/dL (30-55); Mean Corpuscular Hemoglobin 31.3 pg (27-33); Nucleated Red Blood Cells % 1.0 %; Platelet Count 47 10^3/cmm (157-399); Red Blood Count 2.14 10^6/uL (3.85-5.65); White Blood Count 2.89 10^3/uL (3.29-11.43)
[2025-03-12] MEDS: pantoprazole 40 mg SDV IVP ×2 (05:52→16:02)
[2025-03-12] MEDS: cyanocobalamin 1,000 mcg/mL SDV 1000 MCG IM (05:53)
[2025-03-12 05:55] LABS: INR 1.63 (0.8-1.2); Prothrombin Time 20.40 SECONDS (12.1-14.9)
[2025-03-12 06:01] LABS: Alanine Aminotransferase 287 U/L (0-33); Albumin Level 3.1 g/dL (3.5-5.2); Alkaline Phosphatase 53 U/L (35-105); Anion Gap 19.3 (5-19); Blood Urea Nitrogen 16 mg/dL (6-20); Calcium 8.2 mg/dL (8.5-10.5); Carbon Dioxide 17 mmol/L (22-29); Chloride 94 mmol/L (98-107); Cholesterol 55 mg/dL (0-200); Globulin 2.0 g/dL (1.3-4.6); Glucose 99 mg/dL (65-115); HDL Cholesterol 7 mg/dL (60-100); Magnesium 1.6 mg/dL (1.7-2.3); Osmolality Calculated 265 mOsm/kg (285-295); Potassium 3.3 mmol/L (3.5-5.1); Sodium 127 mmol/L (136-145); Total Protein 5.1 g/dL (6.6-8.7); Triglycerides 84 mg/dL (0-150)
[2025-03-12 06:08] LABS: Procalcitonin 0.60 ng/mL (0-0.5)
[2025-03-12 06:15] LABS: Aspartate Amino Transferase 757 U/L (0-32)
[2025-03-12 06:58] LABS: Hematocrit 18.3 % (36-47)
[2025-03-12 06:59] LABS: Mean Corpuscular Volume 85.5 fl (85-98); Slide Review Slide Review Perform
[2025-03-12 07:49] LABS: EBV IGG TEST >750.00 U/mL; EBV IGM TEST <36.00 U/mL
[2025-03-12] MEDS: sucralfate 1 gm/10 mL Oral Liq UDC PO ×4 (07:57→21:17)
--- NOTE | 2025-03-12 11:14 | CTR_ITS ---
PROCEDURE INFORMATION: Exam: CT Chest With Contrast; Diagnostic Exam date and time: 03/12/2025 3:14 PM Age: 44 years old Clinical indication: Other: Possible leukemia; Additional info: Concern for leukemia TECHNIQUE: Imaging protocol: Diagnostic computed tomography of the chest with contrast. Radiation optimization: All CT scans at this facility use at least one of these dose optimization techniques: automated exposure control; mA and/or kV adjustment per patient size (includes targeted exams where dose is matched to clinical indication); or iterative reconstruction. Contrast material: OMNIPAQUE 350; Contrast volume: 100 ml; Contrast route: INTRAVENOUS (IV); COMPARISON: CR XR chest 1V portable [id number] 03/11/2025 12:28 PM RADIATION DOSE METRICS: Total DLP (mGy-cm): 577.66 FINDINGS: Lungs: Unremarkable. No consolidation. No masses. Pleural spaces: Unremarkable. No pneumothorax. No pleural effusion. Heart: Unremarkable. No cardiomegaly. No pericardial effusion. Lymph nodes: A few small scattered lymph nodes. No significantly enlarged lymph nodes. Vasculature: Unremarkable. No aortic aneurysm. Bones/joints: Degenerative changes most marked midthoracic to lower thoracic spine. Schmorl's node deformity inferior endplate of T9.. Soft tissues: Unremarkable. Upper abdomen: Status post cholecystectomy. 5.9 mm cyst lateral segment left lobe liver adjacent to the falciform ligament. 2.9 cm accessory splenic nodule. 9.2 mm cyst upper pole right kidney. No follow-up imaging recommended. In a low-risk patient, this is most likely to be benign and no further follow-up is recommended. In a high-risk patient, follow-up MRI in 3-6 months is recommended (or earlier if warranted by the patient's specific clinical circumstances). (Reference: Krystal) References: Krystal MICHAELS, et al. Management of Incidental Liver Lesions on CT: A White Paper of the ACR Incidental Findings Committee. J Am Jose Radiol. 2017;14(11):4733-5957. Benign simple renal cyst requiring no follow-up. (Reference: Nakita) References: Nakita HERNANDEZ, et al. Bosniak Classification of Cystic Renal Masses, Version 2019: An Update Proposal and Needs Assessment. Radiology. 2019;292(2):475-488. CT/CT chest w con* [id number] IMPRESSION: No acute findings.
--- NOTE | 2025-03-12 11:14 | CT_ITS ---
WS: [id number] CT HEAD NONCONTRAST HISTORY: severe anemia, possible ttp TECHNIQUE: Contiguous axial imaging performed through the brain. Bone and soft tissue windows. Sagittal and coronal reformats reviewed. All CT scans at [facility] use at least one of these dose optimization techniques: automated exposure control; mA and/or kV adjustment per patient size (includes targeted exams where dose is matched to clinical indication); or iterative reconstruction. DLP: 1097.78 mGy.cm COMPARISON: 04/08/2012 No acute intracranial hemorrhage, midline shift or mass effect. No atrophy or prior infarcts or herniation. Ventricles: Normal size with no hydrocephalus. Mild ectopia the cerebellar tonsils. No Chiari malformation. Paranasal sinuses: As visualized are clear. Mastoid air cells: Well pneumatized. Calvarium and scalp: Skull is intact with no soft tissue edema or swelling. CT/CT head wo con* [id number] IMPRESSION: Negative head CT.
--- NOTE | 2025-03-12 11:15 | PM.PN ---
Subjective Subjective: No acute events overnight. Patient overall received 3 units of blood transfusion. States she is feeling better today. Patient is more awake and alert. Has remained hemodynamically stable and afebrile. Vitals/I&O/Wt Last Vital Signs Temp 98.6 F 03/12/25 08:00 Pulse 111 H 03/12/25 09:10 Resp 17 03/12/25 09:10 BP 118/63 03/12/25 09:10 Pulse Ox 100 03/12/25 09:10 O2 Del Method Nasal Cannula 03/12/25 00:10 O2 Flow Rate 1 03/12/25 00:10 03/11/25 03/12/25 03/12/25 22:59 06:59 14:59 Intake Total 3450 / 3500 350 / 3850 Output Total 650 / 650 750 / 1400 Balance 2800 / 2850 -400 / 2450 Weight last 48 hrs Weight 87.543 kg Weight 87.543 kg Weight 87 kg Physical Exam Narrative: General: No acute distress, AO x3, tired appearing, weak appearing, older than stated age HEENT: PERRLA, pupils bilaterally equal and reactive Chest: Normal vesicular breath sounds, no added sounds, equal good air entry bilaterally CVS: S1-S2 regular, ejection systolic murmur at the apex, tachycardia, no gallops, no rubs Abdomen: Soft, nontender, no organomegaly, bowel sounds present Neuro: No focal deficits, no facial deformity, AO x3, power 5/5 in all limbs Urinary Catheter Management: Holder: Cath Placed During This Visit: yes Reason for Continuing Indwelling Catheter: Accurate Measurement of Urinary Output in Critically Ill Patients Urinary Catheter Date of Insertion: 03/11/25 Data 03/12/25 20:35 03/12/25 05:25 Micro: Microbiology 03/11/25 14:42 Bacterial Antigens - Final Urine Kidney 03/11/25 14:13 Blood Culture - Preliminary Blood SPECIMEN COLLECTED 03/11/25 13:59 Blood Culture - Preliminary Blood SPECIMEN COLLECTED A&P Assessment and plan 1. Anemia: 2. Thrombocytopenia: 3. Supratherapeutic INR: 4. Hyponatremia: Most likely in setting of dehydration. NS at 75 cc/h. Check urine lites. Monitor BMP daily. 5. Elevated lactic acid level: 6. Transaminitis: 7. Amphetamine abuse: 8. Hemolytic anemia: 9. Bilirubinemia: 10. Pancytopenia: Plan: Anemia: With signs of endorgan damage and early shock with tachycardia. Maintain mean artery pressure 65. Overall received 2 unit of blood transfusion. Hemoglobin improved to 6.7. Patient developing pancytopenia today with platelet count down to 45,000, WBC down to 2.9. Normal MCV, normal MCHC. Vitamin B12 level low. Low haptoglobin level 10. LDH more than 7000. Overall indirect bilirubinemia. Robert test negative. Reticulocyte count of 3.2 which is relatively low with RCI of 0.2 which shows hypoproliferation. Improvement in INR and down to 1.6. Appreciate DIC panel. Worsening of transaminitis and bilirubin. CT abdomen/pelvis with normal spleen. EBV serology and CMV serology shows elevated IgG with normal IgM. Respiratory viral panel, HIV negative. Hepatitis C level negative. Hold off on transfusion for now given concerns for possible analysis with worsening of transaminitis. Monitor vitals. Recheck hemoglobin every 8 hours. Request some manual differential. Repeat DIC panel, haptoglobin level. Will check Garcia 13 level. Check parvovirus B DNA level. Echocardiogram still pending. Lower limb DVT ruled out. Vitamin B12 1000 mcg IM daily Vitamin C 1000 mg twice daily. If hemoglobin drops further or any concern for hemodynamic instability will request for further blood transfusion. Maintain oxygen supplement to prevent hypoxic hypoperfusion of the brain. Continue Holder catheterization. Protonix 40 mg twice daily. Carafate ACHS. Supratherapeutic INR is resolved. Lactic acid normalized. CT chest with contrast. CT head without contrast. Given concerns for nonautoimmune hemolytic anemia versus aplastic anemia versus possible leukemia we we will need to transfer patient to tertiary center where inpatient filter tip catcher is available along with possible need for plasmapheresis. Patient is agreeable. Patient's care discussed in detail with physician at [facility] who accepted the patient under their care. Will transfer once bed available. Full code Clear liquid diet Protonix for PUD prophylaxis SCD for DVT prophylaxis. Not on medical prophylaxis given severe anemia PDMP PDMP Reviewed: Not Reviewed Attestations Medical Necessity Statement*: Requires further hospitalization for management of severe anemia with concerns for nonautoimmune hemolysis, pancytopenia pneumonitis with hyperbilirubinemia Critical Care Time: The high probability of a clinically significant, sudden or life threatening deterioration of the patient's [hematology] system(s) required my full and direct attention, intervention and personal management. The critical care time is as shown. This time is in addition to time spent performing any reported procedures but includes the following: [x] Data and vital sign review and interpretation [x] Patient assessment, examination and intervention [x] Documentation [x] Medication orders and management Critical Care Time (min): 70 Coding Level of Care Code Critical Care >/= 30 minutes Critical care time (in minutes): 70 The high probability of a clinically significant, sudden or life threatening deterioration, as referenced in this documentation, required my full and direct attention, intervention and personal management. The critical care time shown is in addition to time spent performing any reported separately billable procedures and includes the following: [x] Data and vital sign review and interpretation [x] Patient assessment, examination and intervention [x] Medication orders and management [x] Patient/Family updates as able [x] Care Coordination and Documentation. Diagnoses Anemia D64.9 Thrombocytopenia D69.6 Supratherapeutic INR R79.1 Hyponatremia E87.1 Elevated lactic acid level R79.89 Transaminitis R74.01 Amphetamine abuse F15.10 Hemolytic anemia D58.9 Bilirubinemia E80.6 Pancytopenia D61.818
[2025-03-12 12:18] LABS: Reflex FDPQ test REFLEX FDP QUEST TES
[2025-03-12 12:22] LABS: Mean Corpuscular HGB Conc 36.5 g/dL (30-55); Mean Corpuscular Hemoglobin 31.4 pg (27-33); Mean Corpuscular Volume 86.0 fl (85-98); Platelet Count 55 10^3/cmm (157-399); Red Blood Count 2.07 10^6/uL (3.85-5.65); White Blood Count 2.92 10^3/uL (3.29-11.43)
[2025-03-12 12:37] LABS: INR 1.48 (0.8-1.2); Prothrombin Time 18.90 SECONDS (12.1-14.9)
[2025-03-12 12:38] LABS: Fibrinogen 245 mg/dL (174-498)
[2025-03-12 12:39] LABS: Partial Thromboplastin Time 31.9 SECONDS (23.9-36.7)
--- NOTE | 2025-03-12 13:01 | PC.NURSE ---
this nurse assumed care at this time
[2025-03-12] MEDS: magnesium sulfate premix 1 GM/100 ML PIGGYBACK IV (13:02)
[2025-03-12 13:04] LABS: Hematocrit 17.8 % (36-47); Hemoglobin 6.50 g/dL (11.27-16.99)
[2025-03-12 13:12] LABS: Total Cells Counted 100 (0-100)
[2025-03-12 13:27] LABS: Absolute Segmented Neutrophil 1.5 10/cmm (1.6-7.1); Atypical Lymphs 0.0 % (0-5); Band Neutrophils Absolute 0.0 10^3/cmm (0.0-1.2)
[2025-03-12 13:28] LABS: Anisocytosis 1+; Hypochromasia Trace; Poikilocytosis 1+
[2025-03-12 13:29] LABS: Basophilic Stippling Trace; Smudge Cells Trace
--- NOTE | 2025-03-12 14:26 | USR_ITS ---
PROCEDURE INFORMATION: Exam: US Soft Tissue Head and Neck, Thyroid Exam date and time: 03/12/2025 4:50 PM Age: 44 years old Clinical indication: Screening exam; Other; Assess with doppler; Additional info: Please assess the blood flow as well, in CT at 1530 TECHNIQUE: Imaging protocol: Real-time ultrasound scan of the neck with image documentation. Exam focused on the thyroid. COMPARISON: CT head wo con* [id number] 03/12/2025 3:11 PM FINDINGS: Heterogeneous thyroid with scattered vague round hypoechoic areas Correlate for Ky's. No hypervascularity. Right thyroid lobe: Measures 4.4 cm sagittal diameter, 1.9 cm AP diameter and 1.5 cm transverse diameter. No nodules. Left thyroid lobe: Measures 3.9 cm sagittal diameter, 1.8 cm AP diameter, 1.4 cm transverse diameter. No nodules. Isthmus: Measures 0.2 cm AP diameter. No nodules. US/US thyroid [id number] IMPRESSION: No gross enlargement. Heterogeneous thyroid with a vague small round hypoechoic areas. Correlate for Ky's.
[2025-03-12] MEDS: iohexol 350 mg/mL 500 mL Btl (per mL) IV (15:15)
[2025-03-12 19:44] LABS: Hematocrit 17.2 % (36-47); Hemoglobin 6.40 g/dL (11.27-16.99)
[2025-03-12] MEDS: morphine 4 mg/mL SDV 1 mL 2 MG IVP (20:49)
[2025-03-12 21:15] LABS: Hematocrit 17.0 % (36-47); Hemoglobin 6.30 g/dL (11.27-16.99)
--- NOTE | 2025-03-12 21:31 | PC.NURSE ---
Received call from [facility] with bed assignment. Pt to transfer to floor 4-D, room 4254, care of Dr. Jerome Burks. Floor phone number for report [phone]
--- NOTE | 2025-03-12 21:57 | PC.NURSE ---
Addendum entered by ABDIAZIZ Small 03/12/25 21:59: Patient notified her family via cell phone. Original Note: Patient being transferred to [facility]. Tulio at [facility] called and given report. Notified him blood would be transfusing during transfer. Called [facility], Unit 4D and gave report. All questions answered.
--- NOTE | 2025-03-12 22:13 | PC.NURSE ---
Addendum entered by ABDIAZIZ Small 03/12/25 22:38: All personal belongings sent with patient. EMS transferring patient to [facility]. Blood had been transfusing approximately 30 minutes when EMS assumed care of patient. Original Note: EMS arrived for patient. [facility] transfusing. at 150ml/hr and sent with them at that rate. Notified them of the time transfusion began.
--- NOTE | 2025-03-13 09:18 | P.TS_ITS ---
Transfer Summary Providers Date of Admission: 03/11/25 15:39 Date of Discharge/Transfer: 03/13/25 Attending Provider at Admission: Pablo Palma MD Attending Provider at Transfer: Pablo Palma MD Transfer Plans: Anticipated date of transfer: 03/13/25 . Receiving Facility: [facility] . Receiving Provider: Dr. Burks . Diagnoses at Discharge Discharge Diagnosis 1. Anemia: 2. Thrombocytopenia: 3. Supratherapeutic INR: 4. Hyponatremia: 5. Elevated lactic acid level: 6. Transaminitis: 7. Amphetamine abuse: 8. Hemolytic anemia: 9. Bilirubinemia: 10. Pancytopenia: Reason for Visit Reason for Visit n/v x2 months, knots on her abd, upper abd pain Brief History: Radha Alberts is a 44 year old female with no known past medical history, who has not followed up with a physician for many years was brought into the ER today by her friends because she has been extremely sleepy, with weakness and low energy worsening for the last 2 months. Patient is awake and alert, weak and tired appearing. States she has been constipated for last 3 to 4 days with nausea and vomiting. Denies any hematemesis or black tarry bowel movements. Denies any alcohol use. States she does smoke methamphetamines with last use within the last 2 weeks. States she was told she was anemic many years ago. In the ER she was found to have a hemoglobin of 2.9, INR of 5.9 and is in the process of getting first unit of blood. On examination blood pressure is 103 over 56 mmHg with heart rate of 118 bpm. Hospital Course Hospital Course Anemia: With signs of endorgan damage and early shock with tachycardia. Maintain mean artery pressure 65. Overall received 2 unit of blood transfusion. Hemoglobin improved to 6.7. Patient developing pancytopenia today with platelet count down to 45,000, WBC down to 2.9. Normal MCV, normal MCHC. Vitamin B12 level low. Low haptoglobin level 10. LDH more than 7000. Overall indirect bilirubinemia. Robert test negative. Reticulocyte count of 3.2 which is relatively low with RCI of 0.2 which shows hypoproliferation. Improvement in INR and down to 1.6. Appreciate DIC panel. Worsening of transaminitis and bilirubin. CT abdomen/pelvis with normal spleen. EBV serology and CMV serology shows elevated IgG with normal IgM. Respiratory viral panel, HIV negative. Hepatitis C level negative. Hold off on transfusion for now given concerns for possible analysis with worsening of transaminitis. Monitor vitals. Recheck hemoglobin every 8 hours. Request some manual differential. Repeat DIC panel, haptoglobin level. Will check Garcia 13 level. Check parvovirus B DNA level. Echocardiogram still pending. Lower limb DVT ruled out. Vitamin B12 1000 mcg IM daily Vitamin C 1000 mg twice daily. If hemoglobin drops further or any concern for hemodynamic instability will re quest for further blood transfusion. Maintain oxygen supplement to prevent hypoxic hypoperfusion of the brain. Continue Holder catheterization. Protonix 40 mg twice daily. Carafate ACHS. Supratherapeutic INR is resolved. Lactic acid normalized. CT chest with contrast. CT head without contrast. Given concerns for nonautoimmune hemolytic anemia versus aplastic anemia versus possible leukemia we we will need to transfer patient to tertiary center where inpatient oncology nurse is available along with possible need for plasmapheresis. Patient is agreeable. Patient's care discussed in detail with Dr. Burks at [facility] who accepted the patient under their care. She has been transferred in hemodynamically stable condition Physical Exam Narrative: General: No acute distress, AO x3, tired appearing, weak appearing, older than stated age HEENT: PERRLA, pupils bilaterally equal and reactive Chest: Normal vesicular breath sounds, no added sounds, equal good air entry bilaterally CVS: S1-S2 regular, ejection systolic murmur at the apex, tachycardia, no gallops, no rubs Abdomen: Soft, nontender, no organomegaly, bowel sounds present Neuro: No focal deficits, no facial deformity, AO x3, power 5/5 in all limbs Urinary Catheter Management: Holder: Cath Placed During This Visit: yes Reason for Continuing Indwelling Catheter: Accurate Measurement of Urinary Output in Critically Ill Patients Urinary Catheter Date of Insertion: 03/11/25 TS Data Studies Completed and Pending Pending at discharge Category Date Time Status ADAMTS 13 Activity With Reflex Routine Lab 03/11/25 18:40 Received Blood Culture Stat Lab 03/11/25 14:13 Results Fibrinogen Degradation Product Routine Lab 03/11/25 21:37 Received Fibrinogen Degradation Product Routine Lab 03/12/25 12:18 Received G6PD [Qkzihhu-7-Kakavprvh Dehydrogen] Stat Lab 03/11/25 18:49 Received MMA [Methylmalonic Acid] Stat Lab 03/12/25 05:25 Received Parvovirus B19 DNA PCR Routine Lab 03/11/25 18:57 Received Thyroid Peroxidase Antobodies Routine Lab 03/12/25 19:17 Received Thyroid Stimulating Immunoglob Routine Lab 03/12/25 19:17 Received Vitamin K Routine Lab 03/11/25 15:25 Received Completed Studies During Hospitalization Category Date Time Status CT abdomen pelvis w con* [id number] Urgent Cat Scan 03/11/25 12:[address] chest w con* [id number] Routine Cat Scan 03/12/25 11:[address] head wo con* [id number] Routine Cat Scan 03/12/25 11:14 Completed XR chest 1V portable [id number] Urgent Exams 03/11/25 12:24 [place] [id number] Routine Ultrasound 03/11/25 15:25 [place] thyroid [id number] Routine Ultrasound 03/12/25 14:26 Completed Laboratory Last Values WBC 2.92 10^3/uL (3.29-11.43) L 03/12/25 11:57 Corrected WBC Cancelled 03/11/25 12:20 RBC 2.07 10^6/uL (3.85-5.65) L 03/12/25 11:57 Hgb 6.30 g/dL (11.27-16.99) L* 03/12/25 20:35 Hct 17.0 % (36-47) L* 03/12/25 20:35 MCV 86.0 fl (85-98) 03/12/25 11:57 MCH 31.4 pg (27-33) 03/12/25 11:57 MCHC 36.5 g/dL (30-55) 03/12/25 11:57 RDW 16.4 % (12.1-15.1) H 03/12/25 11:57 Plt Count 55 10^3/cmm (157-399) L 03/12/25 11:57 MPV Not Reportable 03/12/25 11:57 Gran % Cancelled 03/11/25 12:20 Neut % (Auto) 60.4 % 03/12/25 05:25 Lymph % (Auto) 35.6 % 03/12/25 05:25 [place] % (Auto) 3.1 % 03/12/25 05:25 Eos % (Auto) 0.3 % 03/12/25 05:25 Baso % (Auto) 0.3 % 03/12/25 05:25 Reticulocyte % (Auto) 3.2 % (0.5-2.0) H 03/11/25 12:52 Neut # (Auto) 1.74 10^3/uL (1.8-7.7) L 03/12/25 05:25 Lymph # (Auto) 1.0 10^3/uL (0.8-4.8) 03/12/25 05:25 [place] # (Auto) 0.1 10^3/uL (0.2-0.9) L 03/12/25 05:25 Eos # (Auto) 0.0 10^3/uL (0.0-0.8) 03/12/25 05:25 Baso # (Auto) 0.0 10^3/uL (0.0-0.1) 03/12/25 05:25 Absolute Gran (auto) Cancelled 03/11/25 12:20 Nucleated RBC % (auto) 1.0 % 03/12/25 05:25 Total Counted 100 (0-100) 03/12/25 11:57 Atypical Lymphs % 0.0 % (0-5) 03/12/25 11:57 Absolute Neutrophils 1.5 10^3/cmm (1.4-6.5) 03/12/25 11:57 Segmented Neutrophils 51 % 03/12/25 11:57 Band Neutrophils 0.0 % 03/12/25 11:57 Absolute Lymphocytes 1.3 10^3/cmm (1.2-3.4) 03/12/25 11:57 Lymphocytes (Manual) 46 % 03/12/25 11:57 Monocytes (Manual) 2.0 % 03/12/25 11:57 Absolute Monocytes 0.1 10^3/cmm (0.1-0.6) 03/12/25 11:57 Eosinophils (Manual) 0 % 03/12/25 11:57 Absolute Eosinophils 0.0 10^3/cmm (0.0-0.7) 03/12/25 11:57 Basophils (Manual) 0.0 % 03/12/25 11:57 Absolute Basophils 0.0 10^3/cmm (0.0-0.2) 03/12/25 11:57 Nucleated RBCs 1.0 /100WBC (0-1) 03/12/25 11:57 Nucleated RBCs # 0.0 /100WBC 03/12/25 05:25 Hypersegmented Polys 2+ 03/11/25 12:52 Smudge Cells Trace 03/12/25 11:57 Platelet Estimate Decreased (Normal) L 03/12/25 11:57 Polychromasia 1+ H 03/11/25 12:52 Hypochromasia Trace 03/12/25 11:57 Poikilocytosis 1+ H 03/12/25 11:57 Basophilic Stippling Trace 03/12/25 11:57 Anisocytosis 1+ H 03/12/25 11:57 Macrocytosis 2+ H 03/11/25 12:52 Tear Drop Cells 1+ 03/11/25 12:52 Ovalocytes 1+ H 03/11/25 12:52 Peripher Smr Path Cons Sent for review 03/11/25 12:52 ESR < 1 mm/hr (0-15) 03/11/25 12:52 Haptoglobin 10.0 mg/L (30-200) L 03/12/25 11:57 PT 18.90 SECONDS (12.1-14.9) H 03/12/25 11:57 INR 1.48 (0.8-1.2) H 03/12/25 11:57 APTT 31.9 SECONDS (23.9-36.7) 03/12/25 11:57 Fibrinogen 245 mg/dL (174-498) 03/12/25 11:57 D-Dimer 14.42 ug/mLFEU (0-0.59) H 03/12/25 11:57 Specimen Type Arterial 03/11/25 13:45 Sample Site Radial, left 03/11/25 13:45 ABG pH 7.47 (7.35-7.45) H 03/11/25 13:45 ABG pCO2 19.5 mmHg (35-45) L* 03/11/25 13:45 ABG pO2 126.0 mmHg (80.0-100.0) H 03/11/25 13:45 ABG PO2/FiO2 Ratio 600 03/11/25 13:45 ABG HCO3 14.4 mmol/L (22-26) L 03/11/25 13:45 ABG O2 Saturation > 99.1 03/11/25 13:45 ABG Base Excess -9.2 mmol/L (-2.0-2.0) L 03/11/25 13:45 Gurpreet Test Pos 03/11/25 13:45 A-a O2 Gradient Not Reportable 03/11/25 13:45 Hematocrit 8.5 % (37-47) L 03/11/25 13:45 Hgb O2 Saturation 94.5 % (95-100) L 03/11/25 13:45 Carboxyhemoglobin 1.5 %THgb (0.4-20.1) 03/11/25 13:45 Methemoglobin 4.4 % (0.4-1.5) H 03/11/25 13:45 Total Hemoglobin < 5.0 g/dL (12-16) L 03/11/25 13:45 Sodium 124.0 mmol/L (131-143) L 03/11/25 13:45 Potassium 4.5 mmol/L (3.5-5.0) 03/11/25 13:45 Glucose 101.0 mg/dL (70-115) 03/11/25 13:45 Ionized Calcium 1.1 mmol/L (1.1-1.4) 03/11/25 13:45 O2 Delivery Device Room air 03/11/25 13:45 FiO2 21.0 % 03/11/25 13:45 Assessment Technician ID [place] 03/11/25 13:45 Sodium 127 mmol/L (136-145) L 03/12/25 05:25 Potassium 3.3 mmol/L (3.5-5.1) L 03/12/25 05:25 Chloride 94 mmol/L (98-107) L 03/12/25 05:25 Carbon Dioxide 17 mmol/L (22-29) L 03/12/25 05:25 Anion Gap 19.3 (5-19) H 03/12/25 05:25 BUN 16 mg/dL (6-20) 03/12/25 05:25 Creatinine 0.2 mg/dL (0.5-0.9) L 03/12/25 05:25 GFR Calculation 389.5 mL/min (90-130) H 03/12/25 05:25 Glucose 99 mg/dL (65-115) 03/12/25 05:25 Estimat Average Glucose 114 03/11/25 12:52 Hemoglobin A1c 5.6 % (4.0-6.0) 03/11/25 12:52 Calculated Osmolality 265 mOsm/kg (285-295) L 03/12/25 05:25 Lactic Acid 1.9 mmol/L (0.5-2.2) 03/11/25 21:25 Lactic Acid (Sepsis) Cancelled 03/11/25 12:52 Calcium 8.2 mg/dL (8.5-10.5) L 03/12/25 05:25 Phosphorus 2.6 mg/dL (2.5-4.5) 03/12/25 05:25 Magnesium 1.6 mg/dL (1.7-2.3) L 03/12/25 05: Iron 179 ug/dL (37-145) H 03/11/25 13:59 TIBC 186.63693 mcg/dl 03/11/25 13:59 % Saturation 95.0 % (20-50) H 03/11/25 13:59 Unsat Iron Binding < 8 ug/dL (112-347) L 03/11/25 13:59 Ferritin 1561 ng/mL (15-150) H 03/11/25 12:12 Total Bilirubin 5.0 mg/dL (0.15-1.2) H 03/12/25 11:57 Direct Bilirubin 1.85 mg/dL (0.00-0.30) H 03/12/25 11:57 Indirect Bilirubin 3.15 03/12/25 11:57 GGT 10 U/L (5-36) 03/12/25 11:57 AST 757 U/L (0-32) H 03/12/25 05:25 ALT 287 U/L (0-33) H 03/12/25 05:25 Alkaline Phosphatase 53 U/L (35-105) 03/12/25 05:25 Ammonia 45 umol/L (11-51) 03/11/25 13:59 Lactate Dehydrogenase 6496 U/L (135-214) H 03/12/25 11:57 C-Reactive Protein 37.6 mg/L (0.0-4.9) H 03/11/25 13:59 Total Protein 5.1 g/dL (6.6-8.7) L 03/12/25 05:25 Albumin 3.1 g/dL (3.5-5.2) L 03/12/25 05:25 Globulin 2.0 g/dL (1.3-4.6) 03/12/25 05:25 Triglycerides 84 mg/dL (0-150) 03/12/25 05:25 Cholesterol 55 mg/dL (0-200) 03/12/25 05:25 LDL Cholesterol, Calc 31 mg/dL (50-129) L 03/12/25 05:25 HDL Cholesterol 7 mg/dL (60-100) L 03/12/25 05:25 LDL/HDL Ratio 4.43 RATIO (0.00-3.22) H 03/12/25 05:25 Cholesterol/HDL Ratio 7.86 mg/dL (0.0-4.40) H 03/12/25 05:25 Lipase 44 U/L (13-60) 03/11/25 12:52 Vitamin B12 150 pg/mL (232-1245) L 03/11/25 13:59 Homocysteine 139.59 umol/l (0-15) H 03/12/25 05:25 Procalcitonin 0.60 ng/mL (0-0.5) H 03/12/25 05:25 TSH 0.01 uIU/mL (0.27-4.20) L 03/11/25 13:59 Free T4 3.47 ng/dL (0.82-1.77) H 03/11/25 13:59 Free T3 4.6 PG/ML (2.0-4.4) H 03/11/25 13:59 HCG, Qual Negative (Negative) 03/11/25 12:20 Urine Color Yellow (Yellow) 03/11/25 14:42 Urine Appearance Clear (CLEAR) 03/11/25 14:42 Urine pH 5.5 (5-7) 03/11/25 14:42 Ur Specific [place] 1.065 (1.005-1.030) H 03/11/25 14:42 Urine Protein Trace (Negative) A 03/11/25 14:42 Urine Glucose (UA) Negative (Normal) 03/11/25 14:42 Urine Ketones Trace (Negative) 03/11/25 14:42 Urine Blood 1+ (Negative) A 03/11/25 14:42 Urine Nitrate Negative (Negative) 03/11/25 14:42 Urine Bilirubin Negative (Negative) 03/11/25 14:42 Urine Urobilinogen 1.0 mg/dL (Negative) 03/11/25 14:42 Ur Leukocyte Esterase Negative (Negative) 03/11/25 14:42 Urine RBC 0-2 /hpf (0-2) 03/11/25 14:42 Urine WBC 0-5 /hpf (0-5) 03/11/25 14:42 Ur Squamous Epith Cells 0-5 /hpf (0-5) 03/11/25 14:42 Amorphous Sediment Not Reportable 03/11/25 14:42 Urine Bacteria None seen /hpf (NONE) 03/11/25 14:42 Hyaline Casts 7.42 /lpf 03/11/25 14:42 Salicylates 7.1 mg/dL (3-10) 03/11/25 12:52 Urine Opiates Screen Negative ng/mL (Negative) 03/11/25 14: Acetaminophen < 5.0 ug/mL (10-30) L 03/11/25 12:52 Ur Barbiturates Screen Negative ng/mL (Negative) 03/11/25 14:42 Ur Phencyclidine Scrn Negative ng/mL (Negative) 03/11/25 14:42 Ur Amphetamines Screen Positive ng/mL (Negative) H 03/11/25 14:42 U Benzodiazepines Scrn Negative ng/mL (Negative) 03/11/25 14:42 Urine Cocaine Screen Negative ng/mL (Negative) 03/11/25 14:42 U Marijuana (THC) Screen Negative ng/mL (Negative) 03/11/25 14:42 Ethyl Alcohol < 10 mg/dL (0-10) 03/11/25 12:52 Adenovirus (PCR) Not detected (NOT DETECT) 03/11/25 16:20 C. pneumoniae DNA (PCR) Not detected (NOT DETECT) 03/11/25 16:20 Coronavirus 229E (PCR) Not detected (NOT DETECT) 03/11/25 16:20 CMV IgG Ab 3.00 U/mL H 03/11/25 12:52 CMV IgM Ab <30.00 AU/mL 03/11/25 12:52 EBV IgG Ab >750.00 U/mL H 03/11/25 12:52 EBV IgM Ab <36.00 U/mL 03/11/25 12:52 EBV Nuclear Antigen >600.00 U/mL H 03/11/25 12:52 EBV Interpretation See note 03/11/25 12:52 Hepatitis A IgM Ab Non-reactive (Nonreactive) 03/11/25 13:59 Hep Bs Antigen Non-reactive (Nonreactive) 03/11/25 13:59 Hep B Core IgM Ab Non-reactive (Nonreactive) 03/11/25 13:59 Hepatitis C Antibody Non-reactive (Nonreactive) 03/11/25 13:59 HIV 1&2 Ab & HIV 1 Ag Non-reactive (Non-Reactiv) 03/11/25 12:52 HIV 1&2 Antibody Non-reactive (Non-Reactiv) 03/11/25 12:52 Human Metapneumovir PCR Not detected (NOT DETECT) 03/11/25 16:20 Influenza A (H1) PCR Not detected (NOT DETECT) 03/11/25 16:20 Influ A (H1/09) PCR Not detected (NOT DETECT) 03/11/25 16:20 Influenza A (H3) PCR Not detected (NOT DETECT) 03/11/25 16:20 Influenza Type A (PCR) Not detected (NOT DETECT) 03/11/25 16:20 Influenza Type B (PCR) Not detected (NOT DETECT) 03/11/25 16:20 M. pneumoniae (PCR) Not detected (NOT DETECT) 03/11/25 16:20 Parainfluenza 1 (PCR) Not detected (NOT DETECT) 03/11/25 16:20 Parainfluenza 2 (PCR) Not detected (NOT DETECT) 03/11/25 16:20 Parainfluenza 3 (PCR) Not detected (NOT DETECT) 03/11/25 16:20 Parainfluenza 4 (PCR) Not detected (NOT DETECT) 03/11/25 16:20 RSV Type A (PCR) Not detected (NOT DETECT) 03/11/25 16:20 RSV Type B (PCR) Not detected (NOT DETECT) 03/11/25 16:20 Entero/Rhino (PCR) Not detected (NOT DETECT) 03/11/25 16:20 SARS-CoV-2 (PCR) Not detected (NOT DETECT) 03/11/25 16:20 Blood Type O Positive 03/11/25 12:52 Rho(D) Type Rh positive 03/11/25 12:52 Antibody Screen Negative 03/11/25 12:52 HINA, Poly Interpret Negative 03/11/25 12:52 Crossmatch See Detail 03/11/25 12:52 Radiology Impressions Abdomen/Pelvis CT 03/11/25 12:24 IMPRESSION: 1. No acute abdominal or pelvic abnormalities. 2. Normal appendix. 3. Prior cholecystectomy. 4. No colitis. 5. No free fluid or adenopathy. Chest X-Ray 03/11/25 12:24 IMPRESSION: No acute findings. Venous Duplex 03/11/25 15:25 IMPRESSION: No evidence of deep vein thrombosis. Chest CT 03/12/25 11:14 IMPRESSION: No acute findings. Head CT 03/12/25 11:14 IMPRESSION: Negative head CT. Thyroid Ultrasound 03/12/25 14:26 IMPRESSION: No gross enlargement. Heterogeneous thyroid with a vague small round hypoechoic areas. Correlate for Ky's. Recent Clincial Data Last Vital Signs Temp 98.6 F 03/12/25 22:10 Pulse 102 H 03/12/25 22:10 Resp 22 H 03/12/25 22:10 BP 110/55 03/12/25 22:10 Pulse Ox 100 03/12/25 22:10 O2 Del Method Nasal Cannula 03/12/25 00:10 O2 Flow Rate 1 03/12/25 00:10 Vital Signs Temp Pulse Resp BP Pulse Ox 03/12/25 22:10 98.6 F 102 H 22 H 110/55 100 03/12/25 22:03 98.3 F 98 19 H 111/55 100 03/12/25 21:47 98.2 F 104 H 22 H 105/69 100 Intake & Output/Weight 03/11/25 03/12/25 03/13/25 03/14/25 06:59 06:59 06:59 06:59 Intake Total 3850 / 3850 1407.5 / 1407.5 Output Total 1400 / 1400 2950 / 2950 Balance 2450 / 2450 -1542.5 / -1542.5 Weight 87.543 kg Vitals Last Vital Signs Temp 98.6 F 03/12/25 22:10 Pulse 102 H 03/12/25 22:10 Resp 22 H 03/12/25 22:10 BP 110/55 03/12/25 22:10 Pulse Ox 100 03/12/25 22:10 O2 Del Method Nasal Cannula 03/12/25 00:10 O2 Flow Rate 1 03/12/25 00:10 TS Medications Medications Discontinued Medications Acetaminophen (Acetaminophen 325 Mg Tablet) 650 mg PO Q6H PRN PRN Reason: Mild/Mod Pain Or Temp >/= 101 Ascorbic Acid (Ascorbic Acid 500 Mg Tablet) 1,000 mg PO BID [facility] Last Admin: 03/12/25 16:01 Dose: 1,000 mg Cyanocobalamin (Cyanocobalamin 1,000 Mcg/Ml Sdv) 1,000 mcg IM DAILY [facility] Last Admin: 03/12/25 05:53 Dose: 1,000 mcg Docusate Sodium (Docusate Sodium 100 Mg Capsule) 100 mg PO BID [facility] Last Admin: 03/12/25 16:02 Dose: Not Given Sodium Chloride (Sodium Chloride 0.9%) 1,000 mls @ 999 mls/hr IV .Q1H1M ONE Stop: 03/11/25 13:28 Last Infusion: 03/11/25 17:40 Dose: Infused Sodium Chloride (Sodium Chloride 0.9%) 1,000 mls @ 999 mls/hr IV .Q1H1M ONE Stop: 03/11/25 14:25 Last Infusion: 03/11/25 17:40 Dose: Infused Vancomycin HCl (Vancocin) 1,250 mg in 250 mls @ 166.667 mls/hr IV ONCE ONE; Protocol Stop: 03/11/25 14:54 Last Infusion: 03/11/25 17:41 Dose: Infused Piperacillin Sod/Tazobactam (Sod 3.375 gm/ Sodium Chloride) 50 mls @ 100 mls/hr IV ONCE ONE; Protocol Stop: 03/11/25 13:54 Last Infusion: 03/11/25 14:35 Dose: Infused Sodium Chloride (Sodium Chloride 0.9%) 500 mls @ 700 mls/hr IV ONCE ONE Stop: 03/11/25 14:21 Last Infusion: 03/11/25 17:41 Dose: Infused Sodium Chloride (Sodium Chloride 0.9%) 1,000 mls @ 50 mls/hr IV .Q20H [facility] Last Admin: 03/12/25 13:06 Dose: 50 mls/hr Magnesium Sulfate/Dextrose (Magnesium Sulfate Premix) 1 gm in 100 mls @ 200 mls/hr IV ONCE ONE Stop: 03/12/25 11:41 Last Infusion: 03/12/25 22:09 Dose: Infused Iohexol (Iohexol 350 Mg/Ml 500 Ml Btl (Per Ml)) 0 ml IV ONCE ONE Stop: 03/11/25 13:43 Last Admin: 03/12/25 15:15 Dose: 100 ml Lactulose (Lactulose Oral Liq 20 Gm/30 Ml Udc) 10 gm PO DAILY PRN; Protocol PRN Reason: Constipation (see protocol) Magnesium Hydroxide (Magnesium Hydroxide 30 Ml Udc) 30 ml PO DAILY PRN; Protocol PRN Reason: Constipation (see protocol) Morphine Sulfate (Morphine 4 Mg/Ml Sdv 1 Ml) 2 mg IVP Q4H PRN PRN Reason: SEVERE PAIN Last Admin: 03/12/25 20:49 Dose: 2 mg Ondansetron HCl (Ondansetron 2 Mg/Ml Sdv 2 Ml) 4 mg IVP Q6H PRN PRN Reason: vomiting, or N/V if npo Last Admin: 03/11/25 20:10 Dose: 4 mg Pantoprazole Sodium (Pantoprazole 40 Mg Sdv) 40 mg IVP Q12H [facility] Last Admin: 03/12/25 16:02 Dose: 40 mg Phytonadione (Phytonadione (Adult) 10 Mg/Ml Ampule 1 Ml) 5 mg SUBCUT ONCE ONE Stop: 03/11/25 15:26 Last Admin: 03/11/25 16:55 Dose: 5 mg Sodium Chloride (Sodium Chloride 0.9% 100 Ml Bag) 50 ml IV PRN PRN PRN Reason: Blood transfusion prime and flush Stop: 03/12/25 13:23 Last Admin: 03/11/25 14:35 Dose: 50 ml Sodium Chloride (Sodium Chloride 0.9% 100 Ml Bag) 50 ml IV PRN PRN PRN Reason: Blood transfusion prime and flush Stop: 03/12/25 21:52 Sodium Chloride (Sodium Chloride 0.9% 100 Ml Bag) 50 ml IV PRN PRN PRN Reason: Blood transfusion prime and flush Stop: 03/12/25 23:20 Sodium Chloride (Sodium Chloride 0.9% 100 Ml Bag) 50 ml IV PRN PRN PRN Reason: Blood transfusion prime and flush Stop: 03/13/25 19:59 Sucralfate (Sucralfate 1 Gm/10 Ml Oral Liq Udc) 1 gm PO ONCE ONE Stop: 03/11/25 15:26 Last Admin: 03/11/25 16:56 Dose: 1 gm Sucralfate (Sucralfate 1 Gm/10 Ml Oral Liq Udc) 1 gm PO AC&BEDTIME [facility]ARINA Last Admin: 03/12/25 21:17 Dose: 1 gm Allergies ibuprofen Allergy (Verified 03/11/25 12:07) Unknown naproxen Allergy (Verified 03/11/25 12:07) Unknown Home Medications No Known Home Medications 03/11/25 [History Confirmed 03/11/25] Discharge Plan Discharge Patient Disposition: Xfer Short-Term Hosp Condition: Stable Prescriptions: No Action No Known Home Medications Discharge Order = DC NOW: Discharge Order (Routine); Ordered 03/12/25 Ordered By: Grover Gallegos Transfer Out of Facility (Order); Ordered 03/12/25 Ordered By: Phool Gallegos Transfer Attestations Time Spent in Transfer Care: greater than 30 min Quality Metrics Clinical Quality Measures [ No reported AMI, CVA or VTE this stay] Coding Level of Care Code Acute Code for Chg Fwd Diagnoses Anemia D64.9 Thrombocytopenia D69.6 Supratherapeutic INR R79.1 Hyponatremia E87.1 Elevated lactic acid level R79.89 Transaminitis R74.01 Amphetamine abuse F15.10 Hemolytic anemia D58.9 Bilirubinemia E80.6 Pancytopenia D61.818
[2025-03-14 13:38] LABS: Glucose-6-Phosphate Dehydrogen 18.9 U/g Hgb (7.0-20.5)
[2025-03-14 17:43] LABS: ADAMTS 13 Activity 0.35 IU/mL (0.68-1.63)
[2025-03-15 16:19] LABS: Parvovirus B19 DNA PCR Not Detected copies/mL (Not Detected)
[2025-03-18 10:11] LABS: Thyroid Peroxidase Antobodies 1 IU/mL (<9)
== END 2025-03-12 22:15 | disposition short-term general hospital (02) | DRG 812 ==
LOC: ER 15:30 → CSU 15:40 → ER IP 16:09 → ICU 16:10
PROVIDERS: Student in an Organized Health Care Education/Training Program; Admitting Provider Student in an Organized Health Care Education/Training Program; Emergency Provider Physician Assistant; Visit Provider Student in an Organized Health Care Education/Training Program
DX: D58.9 Hereditary hemolytic anemia, unspecified (principal); E87.1 Hypo-osmolality and hyponatremia; D61.818 Other pancytopenia; R57.9 Shock, unspecified; D69.6 Thrombocytopenia, unspecified; E86.0 Dehydration; R74.01 Elevation of levels of liver transaminase levels; F15.10 Other stimulant abuse, uncomplicated
CPT/HCPCS: 36415; 36430; 36600; 51702; 70450; 71045; 71260; 74177; 76536; 80051; 80053; 80061; 80074; 80306; 80307; 81001; 82140; 82247; 82248; 82330; 82607; 82728; 82805; 82955; 82977; 83010; 83036; 83090; 83540; 83550; 83605; 83615; 83690; 83735; 83921; 84100; 84145; 84439; 84443; 84445; 84481; 84597; 84703; 85007; 85014; 85018; 85025; 85027; 85045; 85362; 85378; 85384; 85397; 85610; 85651; 85730; 86140; 86376; 86403; 86664; 86665; 86850; 86880; 86900; 86920; 87040; 87486; 87581; 87633; 87799; 87806; 93005; 93970; 94664; 96365; 96367; 96372; 99291; 99292; J2270; J2405; J2470; J2543; J3373; J3420; J3430; J3475; J7030; J7040; J9999; P9016

== ENCOUNTER 2025-04-02 10:52 | Oncology outpatient (recurring) (ONCR) | payer BC, MEDICAID, SELFPAY ==
[2025-04-02 12:11] LABS: Hematocrit 37.5 % (36-47); Hemoglobin 11.80 g/dL (11.27-16.99); Mean Corpuscular HGB Conc 31.5 g/dL (30-55); Mean Corpuscular Hemoglobin 30.1 pg (27-33); Mean Corpuscular Volume 95.7 fl (85-98); Nucleated Red Blood Cells % 0 %; Platelet Count 230 10^3/cmm (157-399); Red Blood Count 3.92 10^6/uL (3.85-5.65); White Blood Count 4.40 10^3/uL (3.29-11.43)
[2025-04-02 12:32] LABS: Alanine Aminotransferase 10 U/L (0-33); Albumin Level 3.6 g/dL (3.5-5.2); Alkaline Phosphatase 86 U/L (35-105); Anion Gap 15.1 (5-19); Aspartate Amino Transferase 17 U/L (0-32); Blood Urea Nitrogen 10 mg/dL (6-20); Calcium 8.4 mg/dL (8.5-10.5); Carbon Dioxide 22 mmol/L (22-29); Chloride 105 mmol/L (98-107); Ferritin 233 ng/mL (15-150); Globulin 2.7 g/dL (1.3-4.6); Glucose 86 mg/dL (65-115); Iron 129 ug/dL (37-145); Osmolality Calculated 284 mOsm/kg (285-295); Potassium 4.1 mmol/L (3.5-5.1); Sodium 138 mmol/L (136-145); Total Iron Binding Capacity 155 mcg/dl; Total Protein 6.3 g/dL (6.6-8.7); Unsaturated Iron Binding 26 ug/dL (112-347)
[2025-04-02 12:47] LABS: Vitamin B12 953 pg/mL (232-1245)
[2025-04-09 03:10] LABS: Parietal Cell Antibody Titer 1:20 titer (<1:20)
== END 2025-04-27 23:59 | disposition home or self-care (01) ==
PROVIDERS: Internal Medicine; Visit Provider Internal Medicine Medical Oncology
DX: D50.9 Iron deficiency anemia, unspecified (principal); D51.9 Vitamin B12 deficiency anemia, unspecified
CPT/HCPCS: 36415; 80053; 82248; 82607; 82728; 82746; 83010; 83090; 83540; 83550; 83615; 83921; 85025; 85045; 86255; 86340; 86880

== ENCOUNTER 2025-05-14 13:50 | Oncology outpatient (recurring) (ONCR) | payer BC, MEDICAID, SELFPAY ==
[2025-05-14 14:26] LABS: Hematocrit 42.0 % (36-47); Hemoglobin 14.40 g/dL (11.27-16.99); Mean Corpuscular HGB Conc 34.3 g/dL (30-55); Mean Corpuscular Hemoglobin 29.3 pg (27-33); Mean Corpuscular Volume 85.4 fl (85-98); Nucleated Red Blood Cells % 0 %; Platelet Count 289 10^3/cmm (157-399); Red Blood Count 4.92 10^6/uL (3.85-5.65); White Blood Count 6.77 10^3/uL (3.29-11.43)
[2025-05-14 14:47] LABS: Alanine Aminotransferase 7 U/L (0-33); Albumin Level 3.7 g/dL (3.5-5.2); Alkaline Phosphatase 110 U/L (35-105); Anion Gap 14.8 (5-19); Aspartate Amino Transferase 10 U/L (0-32); Blood Urea Nitrogen 9 mg/dL (6-20); Calcium 8.6 mg/dL (8.5-10.5); Carbon Dioxide 20 mmol/L (22-29); Chloride 106 mmol/L (98-107); Ferritin 119 ng/mL (15-150); Globulin 2.8 g/dL (1.3-4.6); Glucose 99 mg/dL (65-115); Iron 49 ug/dL (37-145); Osmolality Calculated 283 mOsm/kg (285-295); Potassium 3.8 mmol/L (3.5-5.1); Sodium 137 mmol/L (136-145); Total Iron Binding Capacity 206 mcg/dl; Total Protein 6.5 g/dL (6.6-8.7); Unsaturated Iron Binding 157 ug/dL (112-347)
[2025-05-14 15:03] LABS: Vitamin B12 230 pg/mL (232-1245)
[2025-05-20 09:44] LABS: Parietal Cell Antibody Titer 1:160 titer (<1:20)
== END 2025-05-28 23:59 | disposition home or self-care (01) ==
LOC: ONCMED 13:50
PROVIDERS: Visit Provider Internal Medicine
DX: D50.9 Iron deficiency anemia, unspecified (principal); D51.9 Vitamin B12 deficiency anemia, unspecified; D61.818 Other pancytopenia
CPT/HCPCS: 36415; 80053; 82248; 82607; 82728; 82746; 83010; 83090; 83540; 83550; 83615; 83921; 85025; 85045; 86255; 86340; 86880